=== PATIENT | female | born 1970 | race African-American/Black ===

== ENCOUNTER 2016-07-12 08:33 | Emergency (ER) | payer MEDICAID ==
[~2016-07-12] VITALS: Ht 175.3 cm; Wt 80.7 kg
[~2016-07-12 08:33] MED LIST: ACYC200C PO; CEPH-37 PO; CYCL10TA3 PO; FLUC150T38 PO; FLUO0.05; FLUT110A IN; TRAM50TA2 PO; VENTOLIN
[2016-07-12 09:00] VITALS: BP 134/88
[2016-07-12] MEDS ORDERED: KETOROLAC TROMETH 60MG/2ML VIAL IM ONE (09:30)
[2016-07-12] MEDS ORDERED: ONDANSETRON HCL 4 MG/2 ML VIAL IM ONE (09:30)
[2016-07-12 09:37] LABS: Basophils # (auto) 0 uL; Basophils % (auto) 0.4 % (0.0-2.0); Eosinophils # (auto) 0.1 uL; Hematocrit 38.2 % (36.0-46.0); Hemoglobin 12.9 g/dL (12.2-16.2); Lymphocytes # (auto) 1.5 uL; Lymphocytes % (auto) 25.8 % (10.0-50.0); Mean Corpuscular Hemoglobin 28.4 pg (28.0-32.0); Mean Corpuscular Hgb Conc. 33.8 g/dL (32.0-36.0); Mean Corpuscular Volume 83.9 fL (80.0-100.0); Mean Platelet Volume 7.2 fL (7.4-10.4); Monocytes # (auto) 0.3 uL; Monocytes % (auto) 4.3 % (0.0-12.0); Neutrophils # (auto) 4.1 uL; Neutrophils % (auto) 68.5 % (37.0-80.0); Platelet Count (auto) 341 10^3/uL (140-450); Red Cell Distribution Width 13.8 % (11.6-16.0)
[2016-07-12 10:00] LABS: Albumin 3.7 g/dL (3.4-5.0); BUN/Creatinine Ratio 8.9; Bilirubin, Total 0.6 mg/dL (0.2-1.0); Calcium 9.1 mg/dL (8.5-10.1); Total Protein 8.1 g/dL (6.4-8.2)
[2016-07-12] MEDS ORDERED: IPRATROPIUM BROM 0.5 MG/2.5ML INH SOL NEB ONE (10:00)
[2016-07-12] MEDS ORDERED: ALBUTEROL SULF 2.5 MG/0.5ML(0.5%) NEB SOLN NEB ONE (10:00)
[2016-07-12 10:51] LABS: INR 1.07 (0.9-1.15); Partial Thromboplastin Time 25.9 sec (22.64-33.71)
== END 2016-07-12 11:48 | disposition home or self-care (01) ==
LOC: ER 08:33
DX: N92.0 Excessive and frequent menstruation with regular cycle (principal); J45.909 Unspecified asthma, uncomplicated; D21.9 Benign neoplasm of connective and other soft tissue, unspecified; Z79.899 Other long term (current) drug therapy
CPT/HCPCS: 36415; 76856; 80053; 81002; 84702; 85025; 85610; 85730; 94640; 96372; 99285; J1885; J2405

== ENCOUNTER 2016-09-13 18:40 | Emergency (ER) | payer MEDICAID ==
[2016-09-13] MEDS ORDERED: IPRATROPIUM BROM 0.5 MG/2.5ML INH SOL NEB ONE (21:30)
[2016-09-13] MEDS ORDERED: ALBUTEROL SULF 2.5 MG/0.5ML(0.5%) NEB SOLN NEB ONE (21:30)
[2016-09-13 22:10] LABS: Basophils # (auto) 0 uL; Basophils % (auto) 0.5 % (0.0-2.0); Eosinophils # (auto) 0.2 uL; Eosinophils % (auto) 3.8 % (0.0-7.0); Hematocrit 37.9 % (36.0-46.0); Hemoglobin 12.5 g/dL (12.2-16.2); Lymphocytes # (auto) 2.6 uL; Lymphocytes % (auto) 43.6 % (10.0-50.0); Mean Corpuscular Hemoglobin 27.6 pg (28.0-32.0); Mean Corpuscular Hgb Conc. 32.9 g/dL (32.0-36.0); Mean Corpuscular Volume 83.7 fL (80.0-100.0); Mean Platelet Volume 7.7 fL (7.4-10.4); Monocytes # (auto) 0.3 uL; Neutrophils # (auto) 2.9 uL; Neutrophils % (auto) 47.1 % (37.0-80.0); Platelet Count (auto) 321 10^3/uL (140-450); Red Cell Distribution Width 14.3 % (11.6-16.0); White Blood Cell 6.1 10^3/uL (4.4-10.8)
[2016-09-13 22:40] LABS: Albumin 3.6 g/dL (3.4-5.0); Alkaline Phosphatase 89 U/L (45-117); Anion Gap 9 (5-15); Aspartate Aminotransferase 18 U/L (15-37); BUN/Creatinine Ratio 17.9; Bilirubin, Total 0.2 mg/dL (0.2-1.0); Blood Urea Nitrogen 20 mg/dL (7-18); Calcium 8.8 mg/dL (8.5-10.1); Carbon Dioxide 24 mmol/L (21-32); Chloride 106 mmol/L (98-107); GFR African American 68 mL/min; GFR Non-African American 56 mL/min; Glucose 89 mg/dL (74-106); Potassium 4.1 mmol/L (3.5-5.1); Sodium 139 mmol/L (136-145); Total Protein 8.1 g/dL (6.4-8.2)
[2016-09-13 23:11] VITALS: BP 149/82
[2016-09-14] MEDS ORDERED: SODIUM CHLORIDE 0.9% 1,000 ML IV ONE
[2016-09-14] MEDS ORDERED: ALBUTEROL SULF 2.5 MG/0.5ML(0.5%) NEB SOLN NEB ONE
[2016-09-14] MEDS ORDERED: methylPREDNISolone SOD SUCC 125 MG/2 ML VL IV ONE
[2016-09-14] MEDS ORDERED: KETOROLAC TROMETH 30 MG/ML 1ML VIAL IV ONE
[2016-09-14] MEDS ORDERED: IPRATROPIUM BROM 0.5 MG/2.5ML INH SOL NEB ONE
== END 2016-09-14 03:36 | disposition home or self-care (01) ==
LOC: ER 18:45
DX: J45.901 Unspecified asthma with (acute) exacerbation (principal)
CPT/HCPCS: 36415; 71010; 80053; 84484; 85025; 93005; 94640; 94644; 94761; 96361; 96374; 96375; 99285; J1885; J2930

== ENCOUNTER 2016-09-17 07:19 | Emergency (ER) | payer MEDICAID ==
[~2016-09-17] VITALS: Ht 175.3 cm; Wt 81.6 kg
[2016-09-17 07:48] VITALS: BP 113/80
== END 2016-09-17 08:23 | disposition home or self-care (01) ==
LOC: ER 07:19
DX: B02.9 Zoster without complications (principal); J45.909 Unspecified asthma, uncomplicated

== ENCOUNTER 2017-06-14 13:29 | Observation (INO) | payer MEDICAID ==
[~2017-06-14] VITALS: Ht 175.3 cm; Wt 84.8 kg
[~2017-06-14 13:29] MED LIST changes: +ACYC1CAP23 PO; -ACYC200C PO
[2017-06-14 14:10] LABS: Basophils # (auto) 0 uL; Basophils % (auto) 0.5 % (0.0-2.0); Eosinophils # (auto) 0.1 uL; Eosinophils % (auto) 2.1 % (0.0-7.0); Hematocrit 36.2 % (36.0-46.0); Lymphocytes # (auto) 2.2 uL; Lymphocytes % (auto) 40.4 % (10.0-50.0); Mean Corpuscular Hemoglobin 28.2 pg (28.0-32.0); Mean Corpuscular Hgb Conc. 33.2 g/dL (32.0-36.0); Mean Corpuscular Volume 85.1 fL (80.0-100.0); Monocytes # (auto) 0.3 uL; Monocytes % (auto) 6.3 % (0.0-12.0); Neutrophils # (auto) 2.8 uL; Neutrophils % (auto) 50.7 % (37.0-80.0); Nucleated Red Blood Cells % 0.1 %; Platelet Count (auto) 303 10^3/uL (140-450); Red Blood Cells 4.25 10^6/uL (4.0-5.20); Red Cell Distribution Width 13.9 % (11.8-14.3); White Blood Cell 5.5 10^3/uL (4.4-10.8)
[2017-06-14 14:45] LABS: Albumin 3.5 g/dL (3.4-5.0); BUN/Creatinine Ratio 8.7; Bilirubin, Total 0.2 mg/dL (0.2-1.0); Calcium 8.2 mg/dL (8.5-10.1); Potassium 3.8 mmol/L (3.5-5.1); Total Protein 7.8 g/dL (6.4-8.2)
[2017-06-14 14:46] LABS: Urine Bacteria NONE SEEN /hpf (None Seen); Urine Blood 2+ /uL (Negative); Urine Mucus FEW (None Seen); Urine Specific Gravity 1.028 (1.001-1.035); Urine WBC 2 /hpf (0 - 5)
[2017-06-14] MEDS ORDERED: SODIUM CHLORIDE 0.9% 1,000 ML IVB ONE (17:17)
[2017-06-14] MEDS ORDERED: ONDANSETRON HCL 4 MG/2 ML VIAL IV ONE (17:30)
[2017-06-14] MEDS ORDERED: KETOROLAC TROMETH 30 MG/ML 1ML VIAL IV ONE (17:30)
[2017-06-14 21:39] VITALS: BP 114/70
== END 2017-06-14 21:40 | disposition home or self-care (01) | DRG 249 ==
LOC: ER 13:29 → OVERFLOW 17:19 → ER 21:40
PROVIDERS: ADMIT Family Medicine; ATTEND Family Medicine
DX: K52.9 Noninfective gastroenteritis and colitis, unspecified (principal); J45.909 Unspecified asthma, uncomplicated; R11.2 Nausea with vomiting, unspecified
CPT/HCPCS: 36415; 71045; 74176; 80053; 81001; 81025; 82150; 83690; 85025; 94761; 96361; 96374; 96375; 99285; G0378; J1885; J2405

== ENCOUNTER 2017-06-20 16:55 | Emergency (ER) | payer MEDICAID ==
[~2017-06-20] VITALS: Ht 175.3 cm; Wt 83.9 kg
[2017-06-20 17:41] VITALS: BP 136/89
== END 2017-06-20 18:30 | disposition left against medical advice (07) ==
LOC: ER 16:55
DX: R07.9 Chest pain, unspecified (principal); R51 Headache; Z53.21 Procedure and treatment not carried out due to patient leaving prior to being seen by health care provider
CPT/HCPCS: 93005

== ENCOUNTER 2017-06-29 10:14 | Emergency (ER) | payer MEDICAID ==
[~2017-06-29] VITALS: Ht 172.7 cm; Wt 83.9 kg
[2017-06-29 10:24] VITALS: BP 106/69
== END 2017-06-29 11:26 | disposition home or self-care (01) ==
LOC: ER 10:14
DX: B02.9 Zoster without complications (principal); J45.909 Unspecified asthma, uncomplicated; Z76.0 Encounter for issue of repeat prescription

== ENCOUNTER 2018-01-23 09:20 | Emergency (ER) | payer MEDICAID, OTHER ==
[~2018-01-23] VITALS: Ht 175.3 cm; Wt 81.6 kg
[2018-01-23 09:37] VITALS: BP 109/70
[2018-01-23 11:11] LABS: Basophils # (auto) 0 uL; Basophils % (auto) 0.4 % (0.0-2.0); Eosinophils # (auto) 0 uL; Eosinophils % (auto) 0.9 % (0.0-7.0); Hematocrit 37.8 % (36.0-46.0); Hemoglobin 12.5 g/dL (12.2-16.2); Lymphocytes # (auto) 2.1 uL; Lymphocytes % (auto) 40.5 % (10.0-50.0); Mean Corpuscular Hemoglobin 28.1 pg (28.0-32.0); Mean Corpuscular Volume 85.1 fL (80.0-100.0); Monocytes # (auto) 0.2 uL; Monocytes % (auto) 4.5 % (0.0-12.0); Neutrophils # (auto) 2.8 uL; Neutrophils % (auto) 53.7 % (37.0-80.0); Nucleated Red Blood Cells % 0.1 %; Platelet Count (auto) 329 10^3/uL (140-450); Red Blood Cells 4.44 10^6/uL (4.0-5.20); Red Cell Distribution Width 14.3 % (11.8-14.3); White Blood Cell 5.2 10^3/uL (4.4-10.8)
[2018-01-23 11:30] LABS: Albumin 3.6 g/dL (3.4-5.0); BUN/Creatinine Ratio 9.1; Bilirubin, Total 0.4 mg/dL (0.2-1.0); Calcium 8.4 mg/dL (8.5-10.1)
[2018-01-23 11:37] LABS: Urine WBC None Seen /hpf (0 - 5)
[2018-01-23 12:06] LABS: Urine Bacteria NONE SEEN /hpf (None Seen); Urine Blood Negative /uL (Negative); Urine Mucus FEW (None Seen)
== END 2018-01-23 13:22 | disposition home or self-care (01) ==
LOC: ER 09:20
DX: O26.891 Other specified pregnancy related conditions, first trimester (principal); O21.9 Vomiting of pregnancy, unspecified; O99.511 Diseases of the respiratory system complicating pregnancy, first trimester; J45.909 Unspecified asthma, uncomplicated; Z3A.00 Weeks of gestation of pregnancy not specified
CPT/HCPCS: 36415; 80053; 81001; 81025; 84702; 85025

== ENCOUNTER 2018-04-16 15:53 | Emergency (ER) | payer MEDICAID ==
[~2018-04-16] VITALS: Ht 175.3 cm; Wt 82.1 kg
[2018-04-16 16:18] VITALS: BP 118/75
[2018-04-16] MEDS ORDERED: ALBUTEROL SULF 2.5 MG/0.5ML(0.5%) NEB SOLN NEB ONE (19:00)
[2018-04-16] MEDS ORDERED: LIDOCAINE 1% HCL (LOCAL ANESTH.) INJ 20ML MDV IJ ONE (19:00)
[2018-04-16] MEDS ORDERED: methylPREDNISolone SOD SUCC 125 MG/2 ML VL IM ONE (19:00)
[2018-04-16] MEDS ORDERED: IPRATROPIUM BROM 0.5 MG/2.5ML INH SOL NEB ONE (19:00)
== END 2018-04-16 20:39 | disposition home or self-care (01) ==
LOC: ER 15:53
DX: S90.212A Contusion of left great toe with damage to nail, initial encounter (principal); J45.901 Unspecified asthma with (acute) exacerbation; W19.XXXA Unspecified fall, initial encounter; Y93.89 Activity, other specified; Y92.89 Other specified places as the place of occurrence of the external cause; Y99.8 Other external cause status
CPT/HCPCS: 11730; 94640; 96372; 99283; J2001; J2930; J7611; J7644

== ENCOUNTER 2018-09-23 07:03 | Emergency (ER) | payer MEDICAID ==
[~2018-09-23] VITALS: Ht 175.3 cm; Wt 83.9 kg
[2018-09-23 07:14] VITALS: BP 131/86
[2018-09-23] MEDS ORDERED: ALBUTEROL SULF 2.5 MG/0.5ML(0.5%) NEB SOLN NEB STA (07:16)
[2018-09-23] MEDS ORDERED: IPRATROPIUM BROM 0.5 MG/2.5ML INH SOL NEB ONE (07:30)
[2018-09-23] MEDS ORDERED: methylPREDNISolone SOD SUCC 125 MG/2 ML VL IM ONE (07:45)
== END 2018-09-23 08:07 | disposition home or self-care (01) ==
LOC: ER 07:03
DX: J45.909 Unspecified asthma, uncomplicated (principal); J02.9 Acute pharyngitis, unspecified; H60.91 Unspecified otitis externa, right ear
CPT/HCPCS: 94640; 96372; 99283; J2930; J7611; J7644

== ENCOUNTER 2019-07-19 07:57 | Inpatient (IN) | payer SELFPAY ==
[~2019-07-19] VITALS: Ht 175.3 cm; Wt 78.2 kg
[2019-07-19] MEDS ORDERED: SODIUM CHLORIDE 0.9% 1,000 ML IVB ONE (08:37)
[2019-07-19] MEDS ORDERED: MORPHINE SULFATE 4 MG/ML SYR/VIAL IV ONE (08:45)
[2019-07-19] MEDS ORDERED: ONDANSETRON HCL 4 MG/2 ML VIAL IV ONE ×2 (08:45→13:15)
[2019-07-19 09:14] LABS: Urine Bacteria NONE SEEN /hpf (None Seen); Urine Blood 2+ /uL (Negative); Urine Specific Gravity 1.022 (1.001-1.035); Urine WBC 3 /hpf (0 - 5)
[2019-07-19 09:30] LABS: Basophils # (auto) 0 10 ^3/uL (0-0.2); Basophils % (auto) 0.5 % (0.0-2.0); Eosinophils # (auto) 0.1 10 ^3/uL (0-0.8); Eosinophils % (auto) 2.9 % (0.0-7.0); Hematocrit 38.9 % (36.0-46.0); Hemoglobin 12.8 g/dL (12.2-16.2); Lymphocytes # (auto) 1.6 10 ^3/uL (0.4-5.4); Lymphocytes % (auto) 37.1 % (10.0-50.0); Mean Corpuscular Hemoglobin 28.3 pg (28.0-32.0); Mean Corpuscular Hgb Conc. 32.8 g/dL (32.0-36.0); Mean Corpuscular Volume 86.4 fL (80.0-100.0); Monocytes # (auto) 0.2 10 ^3/uL (0-1.3); Monocytes % (auto) 4.9 % (0.0-12.0); Neutrophils # (auto) 2.3 10 ^3/uL (1.6-8.6); Neutrophils % (auto) 54.6 % (37.0-80.0); Platelet Count (auto) 276 10^3/uL (140-450); Red Cell Distribution Width 13.9 % (11.8-14.3); White Blood Cell 4.3 10^3/uL (4.4-10.8)
[2019-07-19 09:48] LABS: Albumin 3.3 g/dL (3.4-5.0); Calcium 8.6 mg/dL (8.5-10.1)
[2019-07-19 09:52] LABS: BUN/Creatinine Ratio 11.7; Bilirubin, Total 0.5 mg/dL (0.2-1.0); Total Protein 7.4 g/dL (6.4-8.2)
[2019-07-19] MEDS ORDERED: HYDROmorphone HCL 2 MG/ML VL IV ONE (13:15)
[2019-07-19 15:00] VITALS: BP 120/72
[2019-07-19] MEDS ORDERED: NITROGLYCERIN 0.4 MG SL TAB SL PRN (15:00)
[2019-07-19] MEDS ORDERED: traMADol HCL 50 MG TAB PO PRN (15:00)
[2019-07-19] MEDS ORDERED: ALBUTEROL SULF 2.5 MG/0.5ML(0.5%) NEB SOLN NEB PRN (15:00)
[2019-07-19] MEDS ORDERED: TEMAZEPAM 15 MG CAP PO PRN (15:00)
[2019-07-19] MEDS ORDERED: cefTRIAXone 1GM/50ML D5W 50 ML IV ONE (15:00)
[2019-07-19] MEDS ORDERED: MORPHINE SULF INJ 2 MG/ML SYRINGE 1ML IV PRN (15:00)
[2019-07-19] MEDS ORDERED: ACETAMINOPHEN 500 MG TAB PO PRN (15:00)
[2019-07-19] MEDS ORDERED: KETOROLAC TROMETH 15 mg/ml 1ML VL IV PRN (15:00)
[2019-07-19 15:10] LABS: CRP High Sensitivity 0.31 mg/dL (< 0.3)
[2019-07-19] MEDS: SODIUM CHLORIDE 0.9% 1,000 ML IV SCH (16:14)
--- NOTE | 2019-07-19 17:42 | NUR ---
Telemetry admit from ER [facility] admitted to Telemetry unit after SBAR received. Patient oriented to ARTIE KANG RN primary RN, [facility] unit, 223 room, B-bed, and unit policies regarding patient care and visiting hours. Patient now on continuous telemetry monitoring, tele box # [[id number]] and telemetry reading on arrival to unit is []. Patient placed on bedside oxygen, weighed by bedscale and encouraged to call if they need something. All questions and concerns addressed, patient verbalized understanding. Note: []
[2019-07-19 17:50] VITALS: BP 120/75
[2019-07-19] MEDS: ALBUTEROL SULF 2.5 MG/0.5ML(0.5%) NEB SOLN NEB SCH (19:59)
[2019-07-19 20:00] VITALS: BP 113/73
--- NOTE | 2019-07-19 20:00 | NUR ---
Opening Shift Note Assumed care of patient, awake and alert. Patient complains of headache, denies nausea and vomiting. Medicated with Tylenol 500 mg Instructed on POC and to call for assist PRN, will continue to monitor for changes Q1hr and PRN.
[2019-07-19] MEDS: FAMOTIDINE 20 MG TAB PO SCH (21:47)
[2019-07-19] MEDS: metroNIDAZOLE 500MG/100ML 100 ML IV SCH (21:47)
[2019-07-19 21:54] VITALS: BP 113/73
--- NOTE | 2019-07-19 22:02 | NUR ---
Patient noted moaning and complaining of severe abdominal pain. Dr. Acevedo notified of patient's pain level. New order received for Dilaudid 0.5 mg IVP.
[2019-07-19] MEDS: HYDROmorphone HCL 2 MG/ML VL IV PRN (23:47)
[2019-07-20] MEDS: ALBUTEROL SULF 2.5 MG/0.5ML(0.5%) NEB SOLN NEB SCH ×4 (00:15→12:00)
[2019-07-20] MEDS: SODIUM CHLORIDE 0.9% 1,000 ML IV SCH ×2 (00:49→10:49)
[2019-07-20] MEDS: HYDROmorphone HCL 2 MG/ML VL IV PRN ×2 (03:37→09:21)
[2019-07-20] MEDS: PROMETHAZINE HCL 25 MG/ML 1ML IV PRN ×2 (05:11→09:22)
--- NOTE | 2019-07-20 05:11 | NUR ---
Patient complains of abdominal pain. Medicated with Tramadol and Phenergan.
[2019-07-20] MEDS ORDERED: SODIUM CHLORIDE 0.9 % NEB SOLN 3ML NEB ONE ×2 (05:15→09:36)
[2019-07-20 05:30] VITALS: BP 112/68
[2019-07-20] MEDS: metroNIDAZOLE 500MG/100ML 100 ML IV SCH (05:43)
--- NOTE | 2019-07-20 07:00 | NUR ---
Patient resting comfortably. Report given to AM shift RN.
[2019-07-20 07:04] LABS: Basophils # (auto) 0 10 ^3/uL (0-0.2); Basophils % (auto) 0.4 % (0.0-2.0); Eosinophils # (auto) 0.1 10 ^3/uL (0-0.8); Eosinophils % (auto) 2.2 % (0.0-7.0); Hematocrit 34.1 % (36.0-46.0); Hemoglobin 11.3 g/dL (12.2-16.2); Lymphocytes # (auto) 1.8 10 ^3/uL (0.4-5.4); Lymphocytes % (auto) 49.3 % (10.0-50.0); Mean Corpuscular Hemoglobin 28.7 pg (28.0-32.0); Mean Corpuscular Hgb Conc. 33.2 g/dL (32.0-36.0); Mean Corpuscular Volume 86.5 fL (80.0-100.0); Monocytes # (auto) 0.2 10 ^3/uL (0-1.3); Monocytes % (auto) 5.5 % (0.0-12.0); Neutrophils # (auto) 1.6 10 ^3/uL (1.6-8.6); Neutrophils % (auto) 42.6 % (37.0-80.0); Platelet Count (auto) 259 10^3/uL (140-450); Red Blood Cells 3.94 10^6/uL (4.0-5.20); Red Cell Distribution Width 14.2 % (11.8-14.3); White Blood Cell 3.7 10^3/uL (4.4-10.8)
[2019-07-20 07:21] LABS: Albumin 2.9 g/dL (3.4-5.0); Calcium 7.8 mg/dL (8.5-10.1); Potassium 4.1 mmol/L (3.5-5.1)
[2019-07-20 07:24] LABS: BUN/Creatinine Ratio 19.5; Bilirubin, Total 0.3 mg/dL (0.2-1.0); Total Protein 6.4 g/dL (6.4-8.2)
[2019-07-20 09:00] VITALS: BP 129/74
[2019-07-20] MEDS ORDERED: cefTRIAXone 1GM/50ML D5W 50 ML IV SCH (09:00)
[2019-07-20] MEDS: FAMOTIDINE 20 MG TAB PO SCH (09:03)
[2019-07-20 13:00] VITALS: BP 127/75
--- NOTE | 2019-07-20 14:30 | NUR ---
Discharge instructions given as ordered. Encourage to follow up with PMD as instructed. All questions and concerns addressed. Patient verbalized understanding. Medication reconciliation form completed and copy given to patient. IV removed with catheter intact, pressure dressing applied. Telemetry unit returned to ICU. Patient declined to transfer to vehicle via wheelchair, patient left with all personal belongings. No distress noted at time of departure.
== END 2019-07-20 14:30 | disposition home or self-care (01) | DRG 392 ==
LOC: ER 07:57 → TELE 07:58 → TELE-CENTR 17:45
PROVIDERS: ADMIT Internal Medicine; ATTEND Internal Medicine
DX: R10.2 Pelvic and perineal pain (principal); F17.210 Nicotine dependence, cigarettes, uncomplicated; J45.909 Unspecified asthma, uncomplicated; Z80.0 Family history of malignant neoplasm of digestive organs; Z82.49 Family history of ischemic heart disease and other diseases of the circulatory system; R19.7 Diarrhea, unspecified
CPT/HCPCS: 36415; 74176; 76830; 76856; 80053; 81001; 81025; 82150; 83690; 83735; 84443; 85025; 85652; 86141; 94640; 96361; 96365; 96375; 96376; G0378; J0696; J2405; J3490

== ENCOUNTER 2019-07-26 08:50 | Emergency (ER) | payer SELFPAY ==
[~2019-07-26] VITALS: Ht 175.3 cm; Wt 76.2 kg
[2019-07-26 09:02] VITALS: BP 126/79
[2019-07-26 09:39] LABS: Urine Bacteria NONE SEEN /hpf (None Seen); Urine Blood Negative /uL (Negative); Urine Mucus FEW (None Seen); Urine Specific Gravity 1.033 (1.001-1.035); Urine WBC 3 /hpf (0 - 5)
== END 2019-07-26 10:04 | disposition home or self-care (01) ==
LOC: ER 08:50
DX: N39.0 Urinary tract infection, site not specified (principal); N76.0 Acute vaginitis; F17.210 Nicotine dependence, cigarettes, uncomplicated
CPT/HCPCS: 81001; 87210

== ENCOUNTER 2020-02-25 10:11 | Emergency (ER) | payer MEDICAID ==
[~2020-02-25] VITALS: Ht 172.7 cm; Wt 72.6 kg
[2020-02-25] MEDS ORDERED: IBUPROFEN 800 MG TAB PO ONE (12:00)
[2020-02-25 12:21] VITALS: BP 113/78
== END 2020-02-25 12:27 | disposition home or self-care (01) ==
LOC: ER 10:11
DX: M25.551 Pain in right hip (principal); F17.210 Nicotine dependence, cigarettes, uncomplicated; Z79.899 Other long term (current) drug therapy
CPT/HCPCS: 73502

== ENCOUNTER 2020-04-19 07:45 | Emergency (ER) | payer SELFPAY ==
[~2020-04-19] VITALS: Ht 172.7 cm; Wt 68.0 kg
[2020-04-19 08:01] VITALS: BP 122/81
[2020-04-19] MEDS ORDERED: IPRATROPIUM BROM 0.5 MG/2.5ML INH SOL NEB ONE (08:30)
[2020-04-19] MEDS ORDERED: methylPREDNISolone SOD SUCC 125 MG/2 ML VL IM ONE (08:30)
[2020-04-19] MEDS ORDERED: ALBUTEROL SULF 2.5 MG/0.5ML(0.5%) NEB SOLN NEB ONE (08:30)
== END 2020-04-19 09:05 | disposition home or self-care (01) ==
LOC: ER 07:45
DX: J45.21 Mild intermittent asthma with (acute) exacerbation (principal); F17.210 Nicotine dependence, cigarettes, uncomplicated
CPT/HCPCS: 94640; 96372; 99283; J2930; J7644

== ENCOUNTER 2020-06-03 14:08 | Emergency (ER) | payer MEDICAID, OTHER ==
[~2020-06-03] VITALS: Ht 167.6 cm; Wt 61.2 kg
[2020-06-03 15:17] LABS: Basophils # (auto) 0 10 ^3/uL (0-0.2); Basophils % (auto) 0.5 % (0.0-2.0); Eosinophils # (auto) 0.1 10 ^3/uL (0-0.8); Eosinophils % (auto) 1.3 % (0.0-7.0); Hematocrit 38.9 % (36.0-46.0); Hemoglobin 13.1 g/dL (12.2-16.2); Lymphocytes # (auto) 1.7 10 ^3/uL (0.4-5.4); Lymphocytes % (auto) 36.8 % (10.0-50.0); Mean Corpuscular Hemoglobin 29.4 pg (28.0-32.0); Mean Corpuscular Hgb Conc. 33.7 g/dL (32.0-36.0); Mean Corpuscular Volume 87.4 fL (80.0-100.0); Monocytes # (auto) 0.2 10 ^3/uL (0-1.3); Monocytes % (auto) 5.1 % (0.0-12.0); Neutrophils # (auto) 2.7 10 ^3/uL (1.6-8.6); Neutrophils % (auto) 56.3 % (37.0-80.0); Red Blood Cells 4.45 10^6/uL (4.0-5.20); Red Cell Distribution Width 14.3 % (11.8-14.3); White Blood Cell 4.8 10^3/uL (4.4-10.8)
[2020-06-03 15:24] LABS: Urine Bacteria NONE SEEN /hpf (None Seen); Urine Blood Negative /uL (Negative); Urine Hyaline Cast FEW /lpf (0 - 2); Urine Mucus FEW (None Seen); Urine Specific Gravity 1.025 (1.001-1.035); Urine WBC 2 /hpf (0 - 5)
[2020-06-03 15:28] LABS: Amphetamine Screen, Urine NEGATIVE (NEGATIVE); Barbiturate Scree,Urine NEGATIVE (NEGATIVE); Benzodiazephine Screen, Urine NEGATIVE (NEGATIVE); Cannabinoid Screen, Urine POSITIVE (NEGATIVE); Cocaine Screen, Urine NEGATIVE (NEGATIVE); Opiate Scree,Urine NEGATIVE (NEGATIVE)
[2020-06-03 15:30] LABS: Chloride 107 mmol/L (98-107); Potassium 3.8 mmol/L (3.5-5.1); Sodium 139 mmol/L (136-145)
[2020-06-03 15:35] LABS: Phencyclidine Screen, Urine NEGATIVE (NEGATIVE)
[2020-06-03 15:39] LABS: Alanine Aminotransferase 24 U/L (13-56); Albumin 3.6 g/dL (3.4-5.0); Alkaline Phosphatase 89 U/L (45-117); Anion Gap 3 (5-15); Aspartate Aminotransferase 14 U/L (15-37); BUN/Creatinine Ratio 15.1; Bilirubin, Total 0.3 mg/dL (0.2-1.0); Blood Urea Nitrogen 14 mg/dL (7-18); Calcium 8.4 mg/dL (8.5-10.1); Carbon Dioxide 29 mmol/L (21-32); GFR African American 82 mL/min; GFR Non-African American 68 mL/min; Glucose 61 mg/dL (74-106); Magnesium 2.6 mg/dL (1.6-2.6); Total Protein 7.9 g/dL (6.4-8.2)
[2020-06-03] MEDS ORDERED: SODIUM CHLORIDE 0.9% 1,000 ML IV ONE (16:00)
[2020-06-03 18:47] VITALS: BP 102/65
== END 2020-06-03 18:48 | disposition home or self-care (01) ==
LOC: EDUNIT# 14:08 → ER 14:08 → EDBD 14:08 → ER 18:48
DX: R55 Syncope and collapse (principal); F17.210 Nicotine dependence, cigarettes, uncomplicated; Z79.899 Other long term (current) drug therapy
CPT/HCPCS: 36415; 70450; 80053; 80307; 81001; 81025; 83735; 84484; 85025; 96360; 99285; J7030; 93005

== ENCOUNTER 2020-07-20 15:46 | Emergency (ER) | payer MEDICAID, OTHER ==
[~2020-07-20] VITALS: Ht 175.3 cm; Wt 79.4 kg
[2020-07-20] MEDS ORDERED: ONDANSETRON HCL 4 MG/2 ML VIAL IV ONE (16:00)
[2020-07-20] MEDS ORDERED: KETOROLAC TROMETH 30 MG/ML 1ML VIAL IV ONE (16:00)
[2020-07-20 16:49] LABS: Basophils # (auto) 0 10 ^3/uL (0-0.2); Basophils % (auto) 0.7 % (0.0-2.0); Eosinophils # (auto) 0.1 10 ^3/uL (0-0.8); Eosinophils % (auto) 2.1 % (0.0-7.0); Hematocrit 36.8 % (36.0-46.0); Hemoglobin 12.3 g/dL (12.2-16.2); Lymphocytes # (auto) 2.2 10 ^3/uL (0.4-5.4); Lymphocytes % (auto) 38.5 % (10.0-50.0); Mean Corpuscular Hemoglobin 28.9 pg (28.0-32.0); Mean Corpuscular Hgb Conc. 33.4 g/dL (32.0-36.0); Mean Corpuscular Volume 86.3 fL (80.0-100.0); Monocytes # (auto) 0.3 10 ^3/uL (0-1.3); Monocytes % (auto) 5.5 % (0.0-12.0); Neutrophils % (auto) 53.2 % (37.0-80.0); Nucleated Red Blood Cells % 0.2 %; Platelet Count (auto) 299 10^3/uL (140-450); Red Blood Cells 4.27 10^6/uL (4.0-5.20); White Blood Cell 5.6 10^3/uL (4.4-10.8)
[2020-07-20 17:06] LABS: Albumin 3.7 g/dL (3.4-5.0); Anion Gap 5 (5-15); BUN/Creatinine Ratio 12.2; Blood Urea Nitrogen 11 mg/dL (7-18); Calcium 8.1 mg/dL (8.5-10.1); Carbon Dioxide 29 mmol/L (21-32); Chloride 107 mmol/L (98-107); GFR African American 86 mL/min; GFR Non-African American 71 mL/min; Glucose 74 mg/dL (74-106); Magnesium 2.2 mg/dL (1.6-2.6); Potassium 3.7 mmol/L (3.5-5.1); Sodium 141 mmol/L (136-145)
[2020-07-20 17:11] LABS: Alanine Aminotransferase 21 U/L (13-56); Alkaline Phosphatase 88 U/L (45-117); Aspartate Aminotransferase 15 U/L (15-37); Bilirubin, Total 0.2 mg/dL (0.2-1.0); Total Protein 7.6 g/dL (6.4-8.2)
[2020-07-20 17:38] VITALS: BP 114/77
== END 2020-07-20 17:57 | disposition home or self-care (01) ==
LOC: ER 15:46
DX: R07.89 Other chest pain (principal); F17.210 Nicotine dependence, cigarettes, uncomplicated; Z79.899 Other long term (current) drug therapy
CPT/HCPCS: 36415; 71046; 80053; 83735; 84484; 85025; 85379; 93005; 96374; 96375; 99285; J1885; J2405

== ENCOUNTER 2020-07-25 09:55 | Emergency (ER) | payer SELFPAY ==
[~2020-07-25] VITALS: Ht 154.9 cm; Wt 72.6 kg
[2020-07-25] MEDS ORDERED: SODIUM CHLORIDE 0.9% 500 ML IV ONE (10:30)
[2020-07-25] MEDS ORDERED: SODIUM CHLORIDE 0.9% 1,000 ML IV ONE (10:30)
[2020-07-25] MEDS ORDERED: ONDANSETRON HCL 4 MG/2 ML VIAL IV ONE (10:30)
[2020-07-25 10:52] LABS: Basophils # (auto) 0 10 ^3/uL (0-0.2); Basophils % (auto) 0.4 % (0.0-2.0); Eosinophils # (auto) 0.1 10 ^3/uL (0-0.8); Eosinophils % (auto) 1.5 % (0.0-7.0); Hematocrit 36.7 % (36.0-46.0); Hemoglobin 12.3 g/dL (12.2-16.2); Lymphocytes # (auto) 1.3 10 ^3/uL (0.4-5.4); Lymphocytes % (auto) 35.9 % (10.0-50.0); Mean Corpuscular Hemoglobin 28.7 pg (28.0-32.0); Mean Corpuscular Hgb Conc. 33.5 g/dL (32.0-36.0); Mean Corpuscular Volume 85.9 fL (80.0-100.0); Monocytes # (auto) 0.2 10 ^3/uL (0-1.3); Monocytes % (auto) 4.6 % (0.0-12.0); Neutrophils # (auto) 2.2 10 ^3/uL (1.6-8.6); Neutrophils % (auto) 57.6 % (37.0-80.0); Nucleated Red Blood Cells % 0.1 %; Platelet Count (auto) 257 10^3/uL (140-450); Red Blood Cells 4.27 10^6/uL (4.0-5.20); Red Cell Distribution Width 14.4 % (11.8-14.3); White Blood Cell 3.8 10^3/uL (4.4-10.8)
[2020-07-25 10:53] LABS: Albumin 3.5 g/dL (3.4-5.0); Calcium 8.7 mg/dL (8.5-10.1); Potassium 4.3 mmol/L (3.5-5.1)
[2020-07-25 11:00] LABS: Bilirubin, Total 0.2 mg/dL (0.2-1.0); Total Protein 7.3 g/dL (6.4-8.2)
[2020-07-25 11:23] LABS: BUN/Creatinine Ratio 14.1
[2020-07-25] MEDS ORDERED: MORPHINE SULF INJ 2 MG/ML SYRINGE 1ML IV ONE (12:00)
[2020-07-25] MEDS ORDERED: PROCHLORPERAZINE EDISYLATE 5 MG/ML 2ML VIAL IV ONE (12:00)
[2020-07-25 12:28] LABS: Urine WBC None Seen /hpf (0 - 5)
[2020-07-25 13:24] LABS: Urine Bacteria NONE SEEN /hpf (None Seen); Urine Blood Negative /uL (Negative); Urine Mucus FEW (None Seen); Urine Specific Gravity 1.021 (1.001-1.035)
[2020-07-25 13:26] VITALS: BP 131/92
== END 2020-07-25 18:20 | disposition home or self-care (01) ==
LOC: ER 09:55 → EDBD 09:55 → ER 18:20
DX: G43.909 Migraine, unspecified, not intractable, without status migrainosus (principal); Z20.822 Contact with and (suspected) exposure to COVID-19; Z79.899 Other long term (current) drug therapy; Z87.891 Personal history of nicotine dependence
CPT/HCPCS: 36415; 70450; 71046; 80053; 81001; 83735; 84702; 85025; 87426; 93005; 96361; 96374; 96375; 99285; J0780; J2270; J2405

== ENCOUNTER 2021-03-15 09:15 | Emergency (ER) | payer MEDICAID, OTHER ==
[~2021-03-15] VITALS: Ht 175.3 cm; Wt 77.1 kg
[2021-03-15 10:15] VITALS: BP 129/92
[2021-03-15] MEDS ORDERED: KETOROLAC TROMETH 60MG/2ML VIAL IM ONE (10:30)
== END 2021-03-15 10:48 | disposition home or self-care (01) ==
LOC: ER 09:15
DX: K04.7 Periapical abscess without sinus (principal); J45.909 Unspecified asthma, uncomplicated; Z79.899 Other long term (current) drug therapy
CPT/HCPCS: 96372; 99283; J1885

== ENCOUNTER 2021-09-10 12:06 | Emergency (ER) | payer OTHER ==
[~2021-09-10] VITALS: Ht 172.7 cm; Wt 78.9 kg
[2021-09-10] MEDS ORDERED: MORPHINE SULFATE 4 MG/ML SYR/VIAL IV ONE (12:45)
[2021-09-10] MEDS ORDERED: SODIUM CHLORIDE 0.9% 1,000 ML IVB ONE (12:45)
[2021-09-10] MEDS ORDERED: ONDANSETRON HCL 4 MG/2 ML VIAL IV ONE (12:45)
[2021-09-10] MEDS ORDERED: IOHEXOL 300 MG/ML 100ML BOTTLE IJ ONE ×2 (12:51→14:03)
[2021-09-10 13:39] LABS: Basophils # (auto) 0 10 ^3/uL (0-0.2); Basophils % (auto) 0.6 % (0.0-2.0); Eosinophils # (auto) 0 10 ^3/uL (0-0.8); Eosinophils % (auto) 0.7 % (0.0-7.0); Hematocrit 38.4 % (36.0-46.0); Hemoglobin 12.8 g/dL (12.2-16.2); Lymphocytes # (auto) 1.6 10 ^3/uL (0.4-5.4); Lymphocytes % (auto) 33.6 % (10.0-50.0); Mean Corpuscular Hgb Conc. 33.3 g/dL (32.0-36.0); Mean Corpuscular Volume 86.9 fL (80.0-100.0); Monocytes # (auto) 0.3 10 ^3/uL (0-1.3); Monocytes % (auto) 6.1 % (0.0-12.0); Neutrophils # (auto) 2.8 10 ^3/uL (1.6-8.6); Nucleated Red Blood Cells % 0.1 %; Red Blood Cells 4.42 10^6/uL (4.0-5.20); White Blood Cell 4.7 10^3/uL (4.4-10.8)
[2021-09-10 14:04] LABS: Albumin 3.8 g/dL (3.4-5.0); Calcium 9.4 mg/dL (8.5-10.1); Potassium 4.2 mmol/L (3.5-5.1)
[2021-09-10 14:06] LABS: BUN/Creatinine Ratio 13.7
[2021-09-10 14:09] LABS: Bilirubin, Total 0.4 mg/dL (0.2-1.0); Total Protein 8.1 g/dL (6.4-8.2)
[2021-09-10 15:30] VITALS: BP 145/70
[2021-09-10 16:16] LABS: Urine Bacteria NONE SEEN /hpf (None Seen); Urine Blood Negative /uL (Negative); Urine Specific Gravity > 1.050 (1.001-1.035); Urine WBC <1 /hpf (0 - 5)
[2021-09-10] MEDS ORDERED: traMADol HCL 50 MG TAB PO ONE (16:30)
== END 2021-09-10 16:59 | disposition home or self-care (01) ==
LOC: EDUNIT# 12:06 → EDBD 12:06 → ER 12:06
DX: R10.30 Lower abdominal pain, unspecified (principal); R55 Syncope and collapse; J45.909 Unspecified asthma, uncomplicated; V43.52XA Car driver injured in collision with other type car in traffic accident, initial encounter; Y93.89 Activity, other specified; Y92.410 Unspecified street and highway as the place of occurrence of the external cause; Y99.8 Other external cause status
CPT/HCPCS: 36415; 74177; 80053; 81001; 82150; 83690; 85025; 93005; 96361; 96374; 96375; 99285; J2270; J2405; J7030; Q9967

== ENCOUNTER 2021-12-23 07:17 | Emergency (ER) | payer MEDICAID, OTHER ==
[~2021-12-23] VITALS: Ht 172.7 cm; Wt 77.2 kg
[2021-12-23 07:37] VITALS: BP 134/92
[2021-12-23] MEDS ORDERED: METH4PAK PO (08:39)
[2021-12-23] MEDS ORDERED: ACET-1080 PO (08:39)
[2021-12-23] MEDS ORDERED: AZIT250T8 PO (08:39)
[2021-12-23] MEDS ORDERED: cefTRIAXone SOD 1,000 MG VL IM ONE (08:45)
[2021-12-23] MEDS ORDERED: DexAMETHasone SOD PHOS 10MG/1ML VIAL INJ IM ONE (08:45)
[2021-12-23] MEDS ORDERED: ACETAMINOPHEN 500 MG TAB PO ONE (08:45)
== END 2021-12-23 08:49 | disposition home or self-care (01) ==
LOC: ER 07:17
DX: U07.1 COVID-19 (principal); M79.10 Myalgia, unspecified site; J45.909 Unspecified asthma, uncomplicated; Z87.891 Personal history of nicotine dependence
CPT/HCPCS: 71045; 96372; 99284; J0696; J1100

== ENCOUNTER 2022-04-14 09:38 | Emergency (ER) | payer MEDICAID ==
[~2022-04-14] VITALS: Ht 177.8 cm; Wt 81.8 kg
[~2022-04-14 09:38] MED LIST changes: +ACET-1080 PO; +AZIT250T8 PO; +METH4PAK PO
[2022-04-14 10:19] VITALS: BP 147/88
[2022-04-14 10:29] LABS: Basophils # (auto) 0 10 ^3/uL (0-0.2); Basophils % (auto) 0.6 % (0.0-2.0); Eosinophils # (auto) 0.1 10 ^3/uL (0-0.8); Eosinophils % (auto) 1.4 % (0.0-7.0); Hematocrit 38.6 % (36.0-46.0); Hemoglobin 12.6 g/dL (12.2-16.2); Lymphocytes # (auto) 2.3 10 ^3/uL (0.4-5.4); Lymphocytes % (auto) 48.3 % (10.0-50.0); Mean Corpuscular Hgb Conc. 32.6 g/dL (32.0-36.0); Mean Corpuscular Volume 85.8 fL (80.0-100.0); Monocytes # (auto) 0.3 10 ^3/uL (0-1.3); Monocytes % (auto) 7.1 % (0.0-12.0); Neutrophils % (auto) 42.6 % (37.0-80.0); Nucleated Red Blood Cells % 0.1 %; Red Cell Distribution Width 14.6 % (11.8-14.3); White Blood Cell 4.7 10^3/uL (4.4-10.8)
[2022-04-14 10:40] LABS: Albumin 3.8 g/dL (3.4-5.0); Calcium 9.1 mg/dL (8.5-10.1); Potassium 4.2 mmol/L (3.5-5.1)
[2022-04-14 10:45] LABS: Bilirubin, Total 0.3 mg/dL (0.2-1.0); Total Protein 7.4 g/dL (6.4-8.2)
[2022-04-14 12:18] LABS: BUN/Creatinine Ratio 13.3
== END 2022-04-14 13:04 | disposition home or self-care (01) ==
LOC: ER 09:38
DX: R00.2 Palpitations (principal); F41.8 Other specified anxiety disorders; J45.909 Unspecified asthma, uncomplicated; F17.210 Nicotine dependence, cigarettes, uncomplicated; Z79.2 Long term (current) use of antibiotics; Z79.899 Other long term (current) drug therapy
CPT/HCPCS: 36415; 71045; 80053; 81025; 83880; 84484; 85025; 93005

== ENCOUNTER 2022-07-01 17:40 | Inpatient (IN) | payer MEDICAID ==
[~2022-07-01] VITALS: Ht 167.6 cm; Wt 87.0 kg
[2022-07-01] MEDS ORDERED: MORPHINE SULFATE 4 MG/ML SYR/VIAL IV ONE (19:00)
[2022-07-01 19:38] LABS: Basophils # (auto) 0.1 10 ^3/uL (0-0.2); Basophils % (auto) 1.4 % (0.0-2.0); Eosinophils # (auto) 0 10 ^3/uL (0-0.8); Eosinophils % (auto) 0.8 % (0.0-7.0); Hematocrit 37.5 % (36.0-46.0); Hemoglobin 12.4 g/dL (12.2-16.2); Lymphocytes # (auto) 1.2 10 ^3/uL (0.4-5.4); Lymphocytes % (auto) 20.4 % (10.0-50.0); Mean Corpuscular Hemoglobin 28.4 pg (28.0-32.0); Mean Corpuscular Hgb Conc. 33.1 g/dL (32.0-36.0); Mean Corpuscular Volume 85.8 fL (80.0-100.0); Monocytes # (auto) 0.3 10 ^3/uL (0-1.3); Monocytes % (auto) 4.6 % (0.0-12.0); Neutrophils # (auto) 4.2 10 ^3/uL (1.6-8.6); Neutrophils % (auto) 72.8 % (37.0-80.0); Red Blood Cells 4.37 10^6/uL (4.0-5.20); Red Cell Distribution Width 14.4 % (11.8-14.3); White Blood Cell 5.7 10^3/uL (4.4-10.8)
[2022-07-01 19:55] LABS: Albumin 3.7 g/dL (3.4-5.0); Calcium 8.8 mg/dL (8.5-10.1); Potassium 3.8 mmol/L (3.5-5.1)
[2022-07-01 19:58] LABS: BUN/Creatinine Ratio 16.1; Bilirubin, Total 0.2 mg/dL (0.2-1.0); Total Protein 7.6 g/dL (6.4-8.2)
[2022-07-01] MEDS ORDERED: ONDANSETRON HCL 4 MG/2 ML VIAL IV ONE (20:00)
[2022-07-01] MEDS ORDERED: ACETAMINOPHEN 325 MG TAB PO PRN (22:15)
[2022-07-01] MEDS ORDERED: DOCUSATE SOD 100 MG CAP PO PRN (22:15)
[2022-07-01] MEDS: SODIUM CHLORIDE 0.9% 1,000 ML IV SCH (22:15)
[2022-07-01] MEDS ORDERED: NITROGLYCERIN 0.4 MG SL TAB SL PRN (23:00)
[2022-07-01] MEDS ORDERED: MORPHINE SULFATE INJ 2 MG/ml SYRG IV PRN (23:00)
[2022-07-01] MEDS: MORPHINE SULFATE INJ 2 MG/ml SYRG IV PRN (23:07)
[2022-07-01 23:53] LABS: Urine Bacteria NONE SEEN /hpf (None Seen); Urine Blood Negative /uL (Negative); Urine Hyaline Cast FEW /lpf (0 - 2); Urine Mucus FEW (None Seen); Urine Specific Gravity 1.024 (1.001-1.035); Urine WBC 2 /hpf (0 - 5)
[2022-07-02] MEDS: MORPHINE SULFATE INJ 2 MG/ml SYRG IV PRN ×4 (04:24→21:49)
[2022-07-02] MEDS ORDERED: ALBUTEROL MEDNEB 2.5 mg/3ml NEB ONE ×2 (04:40→15:35)
[2022-07-02] MEDS: ALBUTEROL SULF 2.5 MG/0.5ML(0.5%) NEB SOLN NEB PRN ×2 (04:51→15:37)
[2022-07-02 05:19] LABS: Basophils # (auto) 0 10 ^3/uL (0-0.2); Basophils % (auto) 0.4 % (0.0-2.0); Eosinophils # (auto) 0.1 10 ^3/uL (0-0.8); Hematocrit 36.8 % (36.0-46.0); Hemoglobin 12.6 g/dL (12.2-16.2); Lymphocytes # (auto) 1.8 10 ^3/uL (0.4-5.4); Lymphocytes % (auto) 32.1 % (10.0-50.0); Mean Corpuscular Hemoglobin 29.3 pg (28.0-32.0); Mean Corpuscular Hgb Conc. 34.3 g/dL (32.0-36.0); Mean Corpuscular Volume 85.5 fL (80.0-100.0); Monocytes # (auto) 0.4 10 ^3/uL (0-1.3); Monocytes % (auto) 7.4 % (0.0-12.0); Neutrophils # (auto) 3.3 10 ^3/uL (1.6-8.6); Neutrophils % (auto) 59.1 % (37.0-80.0); Nucleated Red Blood Cells % 0.1 %; Red Blood Cells 4.31 10^6/uL (4.0-5.20); Red Cell Distribution Width 14.3 % (11.8-14.3); White Blood Cell 5.6 10^3/uL (4.4-10.8)
[2022-07-02 05:33] LABS: Albumin 3.5 g/dL (3.4-5.0); Calcium 8.5 mg/dL (8.5-10.1)
[2022-07-02 05:37] LABS: BUN/Creatinine Ratio 13.3; Bilirubin, Total 0.7 mg/dL (0.2-1.0); Total Protein 7.4 g/dL (6.4-8.2)
[2022-07-02] MEDS: HYDROcodone-ACET 5/325MG TAB PO PRN (05:38)
[2022-07-02 07:28] VITALS: BP 129/79
[2022-07-02] MEDS: ONDANSETRON HCL 4 MG/2 ML VIAL IV PRN ×3 (09:10→21:49)
[2022-07-02] MEDS: ENOXAPARIN SOD 40 MG/0.4 ML SYRINGE SC SCH (10:00)
[2022-07-02] MEDS: SODIUM CHLORIDE 0.9% 1,000 ML IV SCH (14:55)
[2022-07-02] MEDS: MECLIZINE HCL 25 MG TAB PO PRN ×2 (16:15→21:42)
[2022-07-02 21:56] LABS: Urine Amorphous Crystal FEW /hpf (None Seen); Urine Bacteria NONE SEEN /hpf (None Seen); Urine Blood Negative /uL (Negative); Urine WBC 115 /hpf (0 - 5); Urine WBC Clumps PRESENT /hpf (None Seen)
[2022-07-03] VITALS (11 sets, daily range): BP systolic 100–131; BP diastolic 62–90
[2022-07-03] MEDS: MECLIZINE HCL 25 MG TAB PO PRN ×4 (02:10→21:23)
[2022-07-03] MEDS: ONDANSETRON HCL 4 MG/2 ML VIAL IV PRN (02:11)
[2022-07-03] MEDS: MORPHINE SULFATE INJ 2 MG/ml SYRG IV PRN ×4 (02:11→21:23)
[2022-07-03] MEDS: SODIUM CHLORIDE 0.9% 1,000 ML IV SCH (07:35)
[2022-07-03] MEDS: ENOXAPARIN SOD 40 MG/0.4 ML SYRINGE SC SCH (10:13)
[2022-07-04] MEDS: HYDROcodone-ACET 5/325MG TAB PO PRN (02:58)
[2022-07-04] MEDS: MECLIZINE HCL 25 MG TAB PO PRN ×4 (03:13→21:28)
[2022-07-04] MEDS: SODIUM CHLORIDE 0.9% 1,000 ML IV SCH ×2 (03:59→17:24)
[2022-07-04 05:00] VITALS: BP 121/85
[2022-07-04] MEDS: MORPHINE SULFATE INJ 2 MG/ml SYRG IV PRN ×4 (05:41→21:30)
[2022-07-04 09:00] VITALS: BP 112/70
[2022-07-04] MEDS: ENOXAPARIN SOD 40 MG/0.4 ML SYRINGE SC SCH (11:05)
[2022-07-04 13:00] VITALS: BP 120/83
[2022-07-04 17:00] VITALS: BP 121/82
[2022-07-05 00:18] VITALS: BP 115/81
[2022-07-05] MEDS: MORPHINE SULFATE INJ 2 MG/ml SYRG IV PRN ×2 (02:56→17:41)
[2022-07-05] MEDS: MECLIZINE HCL 25 MG TAB PO PRN ×2 (02:56→17:40)
[2022-07-05 05:40] VITALS: BP 99/62
[2022-07-05 08:59] VITALS: BP 102/55
[2022-07-05] MEDS: ENOXAPARIN SOD 40 MG/0.4 ML SYRINGE SC SCH (09:21)
[2022-07-05] MEDS: SODIUM CHLORIDE 0.9% 1,000 ML IV SCH (09:35)
[2022-07-05] MEDS ORDERED: LORazepam 2MG/ML-1ML VIAL IV ONE (12:00)
[2022-07-05 13:00] VITALS: BP 132/83
[2022-07-05 16:40] VITALS: BP 115/81
[2022-07-05 22:00] VITALS: BP 112/77
[2022-07-06] VITALS (8 sets, daily range): BP systolic 106–119; BP diastolic 54–83
[2022-07-06] MEDS: MECLIZINE HCL 25 MG TAB PO PRN ×4 (00:50→21:40)
[2022-07-06] MEDS: MORPHINE SULFATE INJ 2 MG/ml SYRG IV PRN ×4 (00:51→21:40)
[2022-07-06] MEDS: SODIUM CHLORIDE 0.9% 1,000 ML IV SCH ×2 (05:54→19:15)
[2022-07-06] MEDS: ENOXAPARIN SOD 40 MG/0.4 ML SYRINGE SC SCH (09:10)
[2022-07-07] MEDS: MORPHINE SULFATE INJ 2 MG/ml SYRG IV PRN (04:13)
[2022-07-07] MEDS: MECLIZINE HCL 25 MG TAB PO PRN ×2 (04:13→09:02)
[2022-07-07 05:00] VITALS: BP_SYST 102; BP_SYST 116; BP_SYST 99; BP_DIAS 60; BP_DIAS 71; BP_DIAS 80
[2022-07-07 09:00] VITALS: BP_SYST 101; BP_SYST 109; BP_SYST 111; BP_DIAS 70; BP_DIAS 73
[2022-07-07] MEDS: ENOXAPARIN SOD 40 MG/0.4 ML SYRINGE SC SCH (09:02)
[2022-07-07] MEDS: HYDROcodone-ACET 5/325MG TAB PO PRN (09:03)
[2022-07-07] MEDS ORDERED: MECL12.514 PO (11:23)
[2022-07-07] MEDS: SODIUM CHLORIDE 0.9% 1,000 ML IV SCH (11:30)
[2022-07-07 12:26] VITALS: BP 116/83
== END 2022-07-07 13:05 | disposition home or self-care (01) | DRG 57 ==
LOC: EDBD 17:40 → ER 17:40 → OVERFLOW 22:57 → TELE-WESTW 07-02 23:25
PROVIDERS: ADMIT Nurse Practitioner Family; ATTEND Internal Medicine
DX: S06.0X1A Concussion with loss of consciousness of 30 minutes or less, initial encounter (principal); E66.9 Obesity, unspecified; S01.01XA Laceration without foreign body of scalp, initial encounter; J45.909 Unspecified asthma, uncomplicated; E78.5 Hyperlipidemia, unspecified; R55 Syncope and collapse; F17.210 Nicotine dependence, cigarettes, uncomplicated; M79.18 Myalgia, other site; S50.02XA Contusion of left elbow, initial encounter; S93.505A Unspecified sprain of left lesser toe(s), initial encounter; Z20.822 Contact with and (suspected) exposure to COVID-19; H81.10 Benign paroxysmal vertigo, unspecified ear; W18.39XA Other fall on same level, initial encounter; Z80.0 Family history of malignant neoplasm of digestive organs; Y93.89 Activity, other specified; Y92.89 Other specified places as the place of occurrence of the external cause; Y99.8 Other external cause status; Z83.3 Family history of diabetes mellitus; Z82.49 Family history of ischemic heart disease and other diseases of the circulatory system; Z68.31 Body mass index [BMI] 31.0-31.9, adult
CPT/HCPCS: 36415; 70450; 70551; 73080; 73200; 73610; 73630; 80053; 81001; 85025; 87426; 93005; 93306; 93886; 94640; 95819; 96361; 96374; 96375; G0378; J2405

== ENCOUNTER 2022-08-12 11:11 | Emergency (ER) | payer MEDICAID ==
[~2022-08-12] VITALS: Ht 175.3 cm; Wt 86.5 kg
[~2022-08-12 11:11] MED LIST changes: +MECL12.514 PO
[2022-08-12 11:51] LABS: Basophils # (auto) 0 10 ^3/uL (0-0.2); Basophils % (auto) 0.4 % (0.0-2.0); Eosinophils # (auto) 0.1 10 ^3/uL (0-0.8); Eosinophils % (auto) 2.3 % (0.0-7.0); Hematocrit 36.9 % (36.0-46.0); Hemoglobin 12.3 g/dL (12.2-16.2); Lymphocytes # (auto) 1.7 10 ^3/uL (0.4-5.4); Lymphocytes % (auto) 35.3 % (10.0-50.0); Mean Corpuscular Hemoglobin 28.7 pg (28.0-32.0); Mean Corpuscular Hgb Conc. 33.5 g/dL (32.0-36.0); Mean Corpuscular Volume 85.7 fL (80.0-100.0); Monocytes # (auto) 0.3 10 ^3/uL (0-1.3); Monocytes % (auto) 6.5 % (0.0-12.0); Neutrophils # (auto) 2.7 10 ^3/uL (1.6-8.6); Neutrophils % (auto) 55.5 % (37.0-80.0); Nucleated Red Blood Cells % 0.1 %; Red Cell Distribution Width 14.3 % (11.8-14.3); White Blood Cell 4.9 10^3/uL (4.4-10.8)
[2022-08-12 12:02] LABS: INR 0.97 (0.9-1.15); Magnesium 2.4 mg/dL (1.6-2.6); Partial Thromboplastin Time 25.3 sec (24.6-33.4); Potassium 3.5 mmol/L (3.5-5.1)
[2022-08-12 12:08] LABS: Albumin 3.5 g/dL (3.4-5.0); BUN/Creatinine Ratio 10.7 (10.0-20.0); Bilirubin, Total 0.3 mg/dL (0.2-1.0); Total Protein 7.7 g/dL (6.4-8.2)
[2022-08-12 14:08] VITALS: BP 118/74
== END 2022-08-12 14:14 | disposition home or self-care (01) ==
LOC: ER 11:11
DX: R00.2 Palpitations (principal); R55 Syncope and collapse; F17.210 Nicotine dependence, cigarettes, uncomplicated; J45.909 Unspecified asthma, uncomplicated; E78.5 Hyperlipidemia, unspecified; Z88.6 Allergy status to analgesic agent
CPT/HCPCS: 36415; 71045; 80053; 82962; 83735; 84484; 85025; 85610; 85730; 93005

== ENCOUNTER 2023-01-19 19:38 | Emergency (ER) | payer MEDICAID ==
[~2023-01-19 19:38] MED LIST changes: -ACYC1CAP23 PO; +ACYC200C22 PO; +AZIT-81 PO; -AZIT250T8 PO; -MECL12.514 PO; +MECL1TAB31 PO
== END 2023-01-19 20:12 | disposition left against medical advice (07) ==
LOC: ER 19:40
DX: R00.2 Palpitations (principal); R42 Dizziness and giddiness; R51.9 Headache, unspecified

== ENCOUNTER 2024-04-12 13:25 | Emergency (ER) | payer MEDICAID ==
[~2024-04-12] VITALS: Ht 175.3 cm; Wt 89.9 kg
[~2024-04-12 13:25] MED LIST changes: -AZIT-81 PO; -CEPH-37 PO; -FLUC150T38 PO; +IPR002IS HHN; +LEVO500T91 PO; +MECL12.586 PO; -MECL1TAB31 PO; -METH4PAK PO; +PRED20TA2 PO
--- NOTE | 2024-04-12 13:38 | ED.PDOC ---
SOB-HPI HPI Comments 54 y.o female with PMH of asthma and hyperlipidemia, presents to the ED for a chief complaint of chills associated with congestion, runny nose, nausea, vomiting, diarrhea that started one week ago. Patient mentions symptoms are constant with no modifying factors. Patient does have family at home experiencing the same symptoms. No chest pain, SOB, fever reported. Time Seen by MD: 13:32 Primary Care Provider: JULES Salvador notes: Nurses Notes, Medications, Allergies Information Source: Patient Mode of Arrival: Ambulatory Severity: Moderate Timing: Weeks (1) Duration: Since onset Context: At Rest History of: Asthma Modifying Factors: Nothing Associated Signs and Symptoms: Cough, Nasal Congestion If cough with SOB: Productive Past Medical History PAST MEDICAL HISTORY: Asthma, High Lipids Surgical History: Denies all surgeries EDGER TECHNICIAN History: No Pertinent EDGER TECHNICIAN History Family History Family History: Family hx of DM Social History Smoker: Cigarettes Alcohol: Denies ETOH Use Drugs: Denies Drug Use Lives In: Home Constitutional: reports: chills; denies: diaphoresis, fatigue, fever, malaise, sweats, weakness, others EENTM: reports: nose congestion; denies: blurred vision, double vision, ear bleeding, ear discharge, ear drainage, ear pain, ear ringing, eye pain, eye redness, hearing loss, mouth pain, mouth swelling, nasal discharge, nose bleeding, nose pain, photophobia, tearing, throat pain, throat swelling, voice c hanges, others Respiratory: reports: cough; denies: hemoptysis, orthopnea, SOB at rest, shortness of breath, SOB with excertion, stridor, wheezing, others Cardiovascular: denies: chest pain, dizzy spells, diaphoresis, Dyspnea on exertion, edema, irregular heart beat, left arm pain, lightheadedness, palpitations, PND, syncope, others Gastrointestinal: reports: diarrhea, nausea, vomiting; denies: abdomen distended, abdominal pain, blood streaked bowels, constipated, dysphagia, difficulty swallowing, hematemesis, melena, poor appetite, poor fluid intake, rectal bleeding, rectal pain, others Genitourinary: denies: abnormal vagina bleeding, burning, dyspareunia, dysuria, flank pain, frequency, hematuria, incontinence, pain, , vagina discharge, urgency, others Neurological: denies: dizziness, fainting, headache, left sided numbness, left sided weakness, numbness, paresthesia, pre-existing deficit, right sided numbness, right sided weakness, seizure, speech problems, tingling, tremors, weakness, others Musculoskeletal: denies: back pain, gout, joint pain, joint swelling, muscle pain, muscle stiffness, neck pain, others Integumetry: denies: bruises, change in color, change in hair/nails, dryness, laceration, lesions, lumps, rash, wounds, others Allergic/Immunocompromised: denies: Difficulty Healing, Frequent Infections, Hives, Itching, others Hematologic/Lymphatic: denies: anemia, blood clots, easy bleeding, easy bruising, swollen glands, others Endocrine: denies: excessive hunger, excessive sweating, excessive thirst, excessive urination, flushing, intolerance to cold, intolerance to heat, unexplained weight gain, unexplained weight loss, others Psychiatric: denies: anxiety, bipolar disorder, depression, hopeless, panic disorder, schizophrenia, sleepless, suicidal, others All Other Systems: Reviewed and Negative Physical Exam General Appearance: No Apparent Distress, Normal HEENT: Normal ENT Inspection, Pharynx Normal, TMs Normal Neck: Full Range of Motion, Non-Tender, Normal, Normal Inspection Respiratory: Respiratory Distress, Wheezing (right lung expiratory wheezing) Cardiovascular: No Edema, No JVD, No Murmur, Tachycardia Breast Exam: Deferred Gastrointestinal: Non Tender, No Pulsatile Mass, Normal Bowel Sounds, Soft Genitalia: Deferred Pelvic: Deferred Rectal: Deferred Extremities: No calf tenderness, Normal capillary refill, Normal inspection, Normal range of motion, Non-tender, No pedal edema Musculoskeletal : Apperance: Normal Neurologic: Alert, biomass power plant manager II-XII nml as Tested, No Motor Deficits, Normal Affect, Normal Mood, No Sensory Deficits Cerebellar Function: Normal Reflexes: Normal Skin: Dry, Normal Color, Warm Lymphatic: No Adenopathy Was a procedure done? Was a procedure done?: No Differential Dx Differential Diagnosis: Anxiety, Asthma, Bronchitis, COPD, Hyperventilation, Myocardial infarction, Panic Attack, Pneumonia, Pneumothorax, Respiratory Distress, Sinusitis, Allergic Rhinitis, Otitis Media, Peritonsillar Abscess, Peritonsillar Cellulitis, Pharyngitis, URI X-Ray, Labs, Meds, VS Vital Signs Date Time Temp Pulse Resp B/P (MAP) Pulse Ox O2 Delivery O2 Flow Rate FiO2 04/12/24 15:22 98.4 108 18 132/77 (95) 98 98.4 04/12/24 14:15 118 19 97 Room Air 04/12/24 14:15 98.7 118 19 138/82 (100) 97 98.7 04/12/24 13:39 99.9 113 19 137/94 (108) 100 Lab Test 04/12/24 14:08 04/12/24 13:54 Range/Units Influenza Type A Antigen Negative Negative Influenza Type B Antigen Negative Negative SARS-CoV-2 Antigen (Rapid) Negative NEGATIVE White Blood Count 5.8 4.4-10.8 10^3/uL Red Blood Count 4.36 4.0-5.20 10^6/uL Hemoglobin 12.6 12.2-16.2 g/dL Hematocrit 37.5 36.0-46.0 % Mean Corpuscular Volume 86.0 80.0-100.0 fL Mean Corpuscular Hemoglobin 28.8 28.0-32.0 pg Mean Corpuscular Hemoglobin Concent 33.5 32.0-36.0 g/dL Red Cell Distribution Width 14.8 H 11.8-14.3 % Platelet Count 327 140-450 10^3/uL Mean Platelet Volume 7.0 6.9-10.8 fL Neutrophils (%) (Auto) 92.2 H 37.0-80.0 % Lymphocytes (%) (Auto) 3.0 L 10.0-50.0 % Monocytes (%) (Auto) 4.1 0.0-12.0 % Eosinophils (%) (Auto) 0.5 0.0-7.0 % Basophils (%) (Auto) 0.2 0.0-2.0 % Neutrophils # (Auto) 5.4 1.6-8.6 10 ^3/uL Lymphocytes # (Auto) 0.2 L 0.4-5.4 10 ^3/uL Monocytes # (Auto) 0.2 0-1.3 10 ^3/uL Eosinophils # (Auto) 0 0-0.8 10 ^3/uL Basophils # (Auto) 0 0-0.2 10 ^3/uL Nucleated Red Blood Cells 0.0 % Sodium Level 140 136-145 mmol/L Potassium Level 3.7 3.5-5.1 mmol/L Chloride Level 105 98-107 mmol/L Carbon Dioxide Level 24 20-31 mmol/L Anion Gap 11 5-15 Blood Urea Nitrogen 10 9-23 mg/dL Creatinine 1.01 0.550-1.02 mg/dL Glomerular Filtration Rate Calc 67 >90 mL/min BUN/Creatinine Ratio 9.9 L 10.0-20.0 Serum Glucose 84 74-106 mg/dL Calcium Level 9.9 8.7-10.4 mg/dL Current Medications Medications (Trade) Dose Ordered Sig/Bo Route Start Time Stop Time Status Last Admin Sodium Chloride 1,000 ml @ 1,000 mls/hr Q1H ONCE IV 04/12/24 13:45 04/12/24 14:44 DC 04/12/24 14:20 Ondansetron HCl (Zofran Po) 4 mg ONCE ONCE PO 04/12/24 14:45 04/12/24 14:46 DC 04/12/24 14:42 Time of 1ST Reevaluation: 13:34 Reevaluation 1ST: Unchanged Time of 2ND Reevaluation: 15:29 Reevaluation 2ND: Improved Patient Education/Counseling: Diagnosis, Treatment, Prognosis Family Education/Counseling: No Family Present Additional Information External Notes: 07/06/23- SOB Ordered Test: LAB, PHA, CXR, Influenza and Covid swabs Reviewed Result: LAB including BMP and CBC Interpreted results: CXR- Agreed with radiology Discuss tx/ results: Patient and medical personnel last medical records of admission on 07/19/19, , and 08/04/23 reviewed CXR: IMPRESSION: agree with radiology: Mild bibasilar atelectasis. No focal consolidation visualized. pt has viral syndrome, without infiltrates, covid or influenza. she is feeling better and is stable for discharge Departure 1 Departure Time of Disposition: 15:31 Impression: Primary Impression: Viral syndrome Disposition: 01 HOME / SELF CARE / HOMELESS Condition: Good e-Prescriptions Ondansetron Odt 4MG Tab (ZOFRAN PO) 4 Mg Tb 4 MG PO Q4HPRN PRN for 3 Days, #15 TAB ODT TAB-DISSOLVE IN MOUTH, THEN SWALLOW Prov: SHIRIN SIMON MD 04/12/24 Discharged With: Self Critical Care Note Critical Care Time?: No Stability Stability form required: No I personally scribed for SHIRIN SIMON MD ([facility]) on 04/12/24 at 13:37. Electronically submitted by Haley Burgess ([facility]). I personally scribed for SHIRIN SIMON MD ([facility]) on 04/12/24 at 13:40. Electronically submitted by Haley Burgess ([facility]). I personally scribed for SHIRIN SIMON MD ([facility]) on 04/12/24 at 14:13. Electronically submitted by Haley Burgess ([facility]). SHIRIN SIMON MD Apr 12, 2024 13:37
--- NOTE | 2024-04-12 14:09 | DVH ---
CLINICAL INFORMATION: 54 years old, Female; cough. TECHNIQUE: Single AP portable chest radiograph was obtained. COMPARISON: XY CHEST PORTABLE on DOS: 08/04/23, XY CHEST PORTABLE on DOS: 08/12/22, CXRP on DOS: 2 FINDINGS: Lungs: Mild atelectasis in the lung bases. No focal consolidation visualized. Cardiac: Heart size is within normal limits. Pulmonary vasculature: Unremarkable. Mediastinum/roge: Unremarkable. Bones: No acute osseous abnormality identified. Other: No other significant findings. IMPRESSION: Mild bibasilar atelectasis. No focal consolidation visualized.
[2024-04-12 14:12] LABS: Basophils # (auto) 0 10 ^3/uL (0-0.2); Basophils % (auto) 0.2 % (0.0-2.0); Eosinophils # (auto) 0 10 ^3/uL (0-0.8); Eosinophils % (auto) 0.5 % (0.0-7.0); Hematocrit 37.5 % (36.0-46.0); Hemoglobin 12.6 g/dL (12.2-16.2); Lymphocytes # (auto) 0.2 10 ^3/uL (0.4-5.4); Mean Corpuscular Hemoglobin 28.8 pg (28.0-32.0); Mean Corpuscular Hgb Conc. 33.5 g/dL (32.0-36.0); Monocytes # (auto) 0.2 10 ^3/uL (0-1.3); Monocytes % (auto) 4.1 % (0.0-12.0); Neutrophils # (auto) 5.4 10 ^3/uL (1.6-8.6); Neutrophils % (auto) 92.2 % (37.0-80.0); Platelet Count (auto) 327 10^3/uL (140-450); Red Blood Cells 4.36 10^6/uL (4.0-5.20); Red Cell Distribution Width 14.8 % (11.8-14.3); White Blood Cell 5.8 10^3/uL (4.4-10.8)
[2024-04-12] MEDS: SODIUM CHLORIDE 0.9% 1,000 ML IV ONE (14:20)
[2024-04-12 14:23] LABS: Chloride 105 mmol/L (98-107); Potassium 3.7 mmol/L (3.5-5.1); Sodium 140 mmol/L (136-145)
[2024-04-12 14:24] LABS: Anion Gap 11 (5-15); Calcium 9.9 mg/dL (8.7-10.4); Carbon Dioxide 24 mmol/L (20-31)
[2024-04-12 14:29] LABS: BUN/Creatinine Ratio 9.9 (10.0-20.0); Blood Urea Nitrogen 10 mg/dL (9-23); Glucose 84 mg/dL (74-106)
[2024-04-12] MEDS: ONDANSETRON ODT 4 MG TAB PO ONE (14:42)
[2024-04-12 15:01] LABS: COVID19 ANTIGEN SOFIA FIA NEGATIVE (NEGATIVE)
[2024-04-12 15:02] LABS: Rapid Influenza A Negative (Negative); Rapid Influenza B Negative (Negative)
[2024-04-12] MEDS ORDERED: ZOFR4T PO (15:32)
[2024-04-12 17:05] VITALS: BP 138/82; PULSE 98; RESP 19; TEMP 98.7; O2SAT 97
== END 2024-04-12 17:06 | disposition home or self-care (01) ==
LOC: ER 13:25
DX: B34.9 Viral infection, unspecified (principal); E78.5 Hyperlipidemia, unspecified; F17.210 Nicotine dependence, cigarettes, uncomplicated; J45.909 Unspecified asthma, uncomplicated; Z20.822 Contact with and (suspected) exposure to COVID-19
CPT/HCPCS: 36415; 71045; 80048; 85025; 87426; 87804; 96360; 99284; J7030; Q0162

== ENCOUNTER 2024-04-13 17:04 | Inpatient (IN) | payer MEDICAID ==
[~2024-04-13] VITALS: Ht 175.3 cm; Wt 89.5 kg
[~2024-04-13 17:04] MED LIST changes: +ZOFR4T PO
[2024-04-13 17:26] VITALS: PULSE 125; RESP 29; O2SAT 95
[2024-04-13] MEDS: MAGNESIUM SULFATE 1GM/100ML 100 ML IV ONE (17:48)
[2024-04-13] MEDS: methylPREDNISolone SOD SUCC 125 MG/2 ML VL IV ONE (17:48)
[2024-04-13] MEDS: ALPRAZolam 0.25 MG TAB PO ONE ×2 (17:55→18:46)
[2024-04-13] MEDS: IPRATROPIUM BROM 0.5 MG/2.5ML INH SOL NEB ONE (17:59)
[2024-04-13] MEDS: ALBUTEROL SULF 2.5 MG/0.5ML(0.5%) NEB SOLN NEB ONE (17:59)
--- NOTE | 2024-04-13 18:06 | ED.PDOC ---
History of Present Illness HPI Comments 54F who has the same symptoms of yesterday and was diagnosed w/ viral syndrome and is currently wheezing, I Copied the chart from yesterday due from it being the same. "54 y.o female with PMH of asthma and hyperlipidemia, presents to the ED for a chief complaint of chills associated with congestion, runny nose, nausea, vomiting, diarrhea that started one week ago. Patient mentions symptoms are constant with no modifying factors. Patient does have family at home experiencing the same symptoms. No chest pain, SOB, fever reported." Chief Complaint: Shortness of Breath Time Seen by MD: 17:35 Primary Care Provider: JUANITA Salvador Notes: Nurses Notes, Medications, Allergies Allergies: Coded Allergies: NO KNOWN ALLERGIES (Unverified , 09/23/18) Home Meds Active Scripts Ondansetron Odt 4MG Tab (ZOFRAN PO) 4 Mg Tb, 4 MG PO Q4HPRN PRN for 3 Days, #15 TAB ODT TAB-DISSOLVE IN MOUTH, THEN SWALLOW Prov:HSIRIN SIMON MD 04/12/24 Levofloxacin Hemihydrate (LEVAQUIN 500 MG) 500 Mg Tab, 1 TAB PO DAILY for 5 Days, #5 TAB Prov:LEANN ELIAS GREEN END DEPARTMENT SUPERVISOR 08/07/23 Prednisone (Prednisone) 20 Mg Tab, 20 MG PO DAILY for 5 Days, #5 MG Prov:LEANN ELIAS GREEN END DEPARTMENT SUPERVISOR 08/07/23 Ipratropium [place] (Ipratropium [place]) 0.02 % Magda, 0.5 % HHN Q6HP PRN for 30 Days, #60 ML Prov:LEANN ELIAS GREEN END DEPARTMENT SUPERVISOR 08/07/23 Meclizine Hcl (Meclizine Hcl) 12.5 Mg Tab, 1 TAB PO QIDPRN, #60 TAB 3 Refills Prov:JOHANNA THOMAS MD 07/07/22 Acetaminophen (Tylenol 8 Hour Arthritis) 650 Mg Tab, 650 MG PO TID, #24 TAB Prov:PRAMOD SHEIKH 12/23/21 Cyclobenzaprine Hcl (FLEXERIL) 10 Mg Tab, 10 MG PO Q8HP PRN, #21 TAB Prov:NIESHA ORTIZ N.P. 05/01/13 Tramadol Hcl (Tramadol Hcl) 50 Mg Tab, 50 MG PO Q6HP PRN, #30 TAB Prov:BRIANNA ORTIZCALI Paul 05/01/13 Reported Medications Fluticasone Propionate (Flovent Hfa) 110 Mcg Aer, 110 MCG IN Q4HP 09/07/12 Acyclovir (Acyclovir) 200 Mg Cap, 400 MG PO BID 12/14/10 Fluocinonide (Fluocinonide) 0.05 % Cre 05/02/10 [Ventolin] No Conflict Check, TIDP 10/14/09 Information Source: Patient, [facility] Medical Record, Past Medical Record Mode of Arrival: Wheelchair Severity: Moderate Timing: Days Duration: Since onset, Days Prehospital treatment: None Past Medical History PAST MEDICAL HISTORY: Asthma, High Lipids Surgical History: Denies all surgeries HEALTH PLAN MANAGER History: No Pertinent HEALTH PLAN MANAGER History Family History Family History: Reviewed,noncontributory to illness, Unknown Social History Smoker: Cigarettes Alcohol: Denies ETOH Use Drugs: Denies Drug Use Lives In: Home Constitutional: denies: chills, diaphoresis, fatigue, fever, malaise, sweats, weakness, others EENTM: denies: blurred vision, double vision, ear bleeding, ear discharge, ear drainage, ear pain, ear ringing, eye pain, eye redness, hearing loss, mouth pain, mouth swelling, nasal discharge, nose bleeding, nose congestion, nose pain, photophobia, tearing, throat pain, throat swelling, voice changes, others Respiratory: reports: wheezing; denies: cough, hemoptysis, orthopnea, SOB at rest, shortness of breath, SOB with excertion, stridor, others Cardiovascular: denies: chest pain, dizzy spells, diaphoresis, Dyspnea on exertion, edema, irregular heart beat, left arm pain, lightheadedness, palpitations, PND, syncope, others Gastrointestinal: reports: diarrhea, nausea, vomiting; denies: abdomen distended, abdominal pain, blood streaked bowels, constipated, dysphagia, difficulty swallowing, hematemesis, melena, poor appetite, poor fluid intake, rectal bleeding, rectal pain, others Genitourinary: denies: abnormal vagina bleeding, burning, dyspareunia, dysuria, flank pain, frequency, hematuria, incontinence, pain, , vagina discharge, urgency, others Neurological: denies: dizziness, fainting, headache, left sided numbness, left sided weakness, numbness, paresthesia, pre-existing deficit, right sided numbness, right sided weakness, seizure, speech problems, tingling, tremors, weakness, others Musculoskeletal: denies: back pain, gout, joint pain, joint swelling, muscle pain, muscle stiffness, neck pain, others Integumetry: denies: bruises, change in color, change in hair/nails, dryness, laceration, lesions, lumps, rash, wounds, others Allergic/Immunocompromised: denies: Difficulty Healing, Frequent Infections, Hives, Itching, others Hematologic/Lymphatic: denies: anemia, blood clots, easy bleeding, easy bruising, swollen glands, others Endocrine: denies: excessive hunger, excessive sweating, excessive thirst, excessive urination, flushing, intolerance to cold, intolerance to heat, unexplained weight gain, unexplained weight loss, others Psychiatric: denies: anxiety, bipolar disorder, depression, hopeless, panic disorder, schizophrenia, sleepless, suicidal, others All Other Systems: Reviewed and Negative Physical Exam Exam Comments tachycardic and wheezing General Appearance: No Apparent Distress, Normal HEENT: Normal ENT Inspection, Pharynx Normal, TMs Normal Neck: Full Range of Motion, Non-Tender, Normal, Normal Inspection Respiratory: Chest Non-Tender, Lungs Clear, No Accessory Muscle Use, Wheezing Cardiovascular: No Edema, No JVD, No Murmur, No Gallop, Normal Peripheral Pulses, Tachycardia Breast Exam: Deferred Gastrointestinal: No Organomegaly, Non Tender, No Pulsatile Mass, Normal Bowel Sounds, Soft Genitalia: Deferred Pelvic: Deferred Rectal: Deferred Extremities: No calf tenderness, Normal capillary refill, Normal inspection, Normal range of motion, Non-tender, No pedal edema Musculoskeletal : Apperance: Normal Neurologic: Alert, driver education road instructor II-XII nml as Tested, No Motor Deficits, Normal Affect, Normal Mood, No Sensory Deficits Cerebellar Function: Normal Reflexes: Normal Skin: Dry, Normal Color, Warm Lymphatic: No Adenopathy Was a procedure done? Was a procedure done?: No Differential Dx Considerations may include: pneumonia, viral infection, ptx, asthma exacerbation, chf, anxiety, respiratory failure X-Ray, Labs, Meds, VS Vital Signs Date Time Temp Pulse Resp B/P (MAP) Pulse Ox O2 Delivery O2 Flow Rate FiO2 04/13/24 18:00 22 95 Room Air* 0 21 04/13/24 17:26 125 29 95 Room Air* 0 21 04/13/24 17:25 98.0 125 29 117/84 (95) 95 98.0 04/13/24 17:13 143 04/13/24 17:11 98.0 142 18 106/80 (89) 96 Lab Test 04/13/24 17:46 Range/Units White Blood Count 5.3 4.4-10.8 10^3/uL Red Blood Count 4.57 4.0-5.20 10^6/uL Hemoglobin 13.0 12.2-16.2 g/dL Hematocrit 39.2 36.0-46.0 % Mean Corpuscular Volume 85.7 80.0-100.0 fL Mean Corpuscular Hemoglobin 28.4 28.0-32.0 pg Mean Corpuscular Hemoglobin Concent 33.1 32.0-36.0 g/dL Red Cell Distribution Width 15.2 H 11.8-14.3 % Platelet Count 297 140-450 10^3/uL Mean Platelet Volume 7.0 6.9-10.8 fL Neutrophils (%) (Auto) 89.2 H 37.0-80.0 % Lymphocytes (%) (Auto) 7.4 L 10.0-50.0 % Monocytes (%) (Auto) 3.2 0.0-12.0 % Eosinophils (%) (Auto) 0.1 0.0-7.0 % Basophils (%) (Auto) 0.1 0.0-2.0 % Neutrophils # (Auto) 4.7 1.6-8.6 10 ^3/uL Lymphocytes # (Auto) 0.4 0.4-5.4 10 ^3/uL Monocytes # (Auto) 0.2 0-1.3 10 ^3/uL Eosinophils # (Auto) 0 0-0.8 10 ^3/uL Basophils # (Auto) 0 0-0.2 10 ^3/uL Nucleated Red Blood Cells 0.0 % Sodium Level 138 136-145 mmol/L Potassium Level 4.1 3.5-5.1 mmol/L Chloride Level 105 98-107 mmol/L Carbon Dioxide Level 22 20-31 mmol/L Anion Gap 11 5-15 Blood Urea Nitrogen 12 9-23 mg/dL Creatinine 1.08 H 0.550-1.02 mg/dL Glomerular Filtration Rate Calc 61 >90 mL/min BUN/Creatinine Ratio 11.1 10.0-20.0 Serum Glucose 94 74-106 mg/dL Calcium Level 9.6 8.7-10.4 mg/dL Troponin I High Sensitivity 5 </=34 ng/L Current Medications Medications (Trade) Dose Ordered Sig/Bo Route Start Time Stop Time Status Last Admin Albuterol (Ventolin Medneb) 20 mg ONCE ONCE NEB 04/13/24 17:45 04/13/24 17:46 DC 04/13/24 17:59 Ipratropium [place] (Atrovent Medneb) 0.5 mg ONCE ONCE NEB 04/13/24 17:45 04/13/24 17:46 DC 04/13/24 17:59 Methylprednisolone Sodium Succinate (Solu Medrol) 125 mg ONCE ONCE IV 04/13/24 17:45 04/13/24 17:46 DC 04/13/24 17:48 Magnesium Sulfate/ Dextrose 100 ml @ 100 mls/hr ONCE ONCE IV 04/13/24 17:45 04/13/24 18:44 DC 04/13/24 17:48 Alprazolam (Xanax Tablet) 0.25 mg ONCE ONCE PO 04/13/24 18:45 04/13/24 18:46 DC 04/13/24 18:46 Time of 1ST Reevaluation: 18:05 Reevaluation 1ST: Unchanged Time of 2ND Reevaluation: 19:58 Reevaluation 2ND: Improved Patient Education/Counseling: Diagnosis, Treatment, Prognosis Family Education/Counseling: No Family Present Additional Information - I reviewed the following notes from patient's past medical encounters:04/12/24 - The following tests were ordered, and results were reviewed by me: Labs, X- Ray, EKG, PHA - I reviewed and agreed with the following test results read by other provider: X-ray - I discussed treatments and results with medical personnel and consultants pt was seen yesterday for the same. she was negative for chf, ptx, pneumonia, covid, influenza, but today she is wheezing more. she responded to treatments. pt has severe asthma exacerbation due to a viral infection. i did not repeat the tests and cxr done yesterday Departure 1 Departure Time of Disposition: 20:01 Impression: Primary Impression: Severe asthma with acute exacerbation Qualified Codes: J45.51 - Severe persistent asthma with (acute) exacerbation Additional Impressions: Respiratory distress Tachycardia Disposition: ADMITTED INPATIENT Admit to: Tele Condition: Stable Critical Care Note Critical Care Time?: Yes (45 min-critical care time only) Critical care comment: due to the likelihood of patients condition suddenly deteriorating, the care requires my highest level of attention, readiness to intervene. my critical care include assessing and reassessing of patient's condition, response to treatments, ordering the appropriate tests, reviewing the results, ordering of treatments, discussing the care with medical personnel and consultants, and formulating a treatment plan, as well a reviewing various medical records. this include at least 50% face-face interaction, and does not include any procedures Stability Stability form required: No I personally scribed for SHIRIN SIMON MD ([email or web address]) on 04/13/24 at 18:05. Electronically submitted by Glenn Maciel ([email or web address]). SHIRIN SIMON MD Apr 13, 2024 18:05
[2024-04-13 18:08] LABS: Basophils # (auto) 0 10 ^3/uL (0-0.2); Basophils % (auto) 0.1 % (0.0-2.0); Eosinophils # (auto) 0 10 ^3/uL (0-0.8); Eosinophils % (auto) 0.1 % (0.0-7.0); Hematocrit 39.2 % (36.0-46.0); Lymphocytes # (auto) 0.4 10 ^3/uL (0.4-5.4); Lymphocytes % (auto) 7.4 % (10.0-50.0); Mean Corpuscular Hemoglobin 28.4 pg (28.0-32.0); Mean Corpuscular Hgb Conc. 33.1 g/dL (32.0-36.0); Mean Corpuscular Volume 85.7 fL (80.0-100.0); Monocytes # (auto) 0.2 10 ^3/uL (0-1.3); Monocytes % (auto) 3.2 % (0.0-12.0); Neutrophils # (auto) 4.7 10 ^3/uL (1.6-8.6); Neutrophils % (auto) 89.2 % (37.0-80.0); Platelet Count (auto) 297 10^3/uL (140-450); Red Blood Cells 4.57 10^6/uL (4.0-5.20); Red Cell Distribution Width 15.2 % (11.8-14.3); White Blood Cell 5.3 10^3/uL (4.4-10.8)
[2024-04-13 18:12] LABS: Chloride 105 mmol/L (98-107); Potassium 4.1 mmol/L (3.5-5.1)
[2024-04-13 18:13] LABS: Anion Gap 11 (5-15); Carbon Dioxide 22 mmol/L (20-31); Sodium 138 mmol/L (136-145)
[2024-04-13 18:14] LABS: Calcium 9.6 mg/dL (8.7-10.4)
[2024-04-13 18:19] LABS: BUN/Creatinine Ratio 11.1 (10.0-20.0); Blood Urea Nitrogen 12 mg/dL (9-23); Glucose 94 mg/dL (74-106)
[2024-04-13 19:45] VITALS: RESP 26
[2024-04-13] MEDS ORDERED: ONDANSETRON HCL 4 MG/2 ML VIAL IV PRN (20:45)
[2024-04-13] MEDS ORDERED: DOCUSATE SOD 100 MG CAP PO PRN (20:45)
[2024-04-13] MEDS: SODIUM CHLORIDE 0.9% 1,000 ML IV SCH (21:08)
[2024-04-13] MEDS: ACETAMINOPHEN 325 MG TAB PO PRN (21:09)
--- NOTE | 2024-04-13 22:26 | DVHHP2 ---
History of Present Illness Reason for Visit: Severe asthma with acute exacerbation History of Present Illness The patient is a 54-year-old female with past medical history of asthma and hyperlipidemia who presented to [facility] ED for evaluation of asthma exacerbation. Patient was seen yesterday here and was diagnosed with viral syndrome and is currently wheezing, shortness of breaths at rest, shortness of breaths on exertion, feeling chills, congestion, runny nose, nausea, vomiting, diarrhea, getting worse that prompted this visit. Patient was seen and evaluated in the ED, laboratory data shows WBC 5.3, platelets 297, sodium 138, potassium 4.1, BUN 12, creatinine 1.08, glucose 94, troponin 5, blood pressure 118/83, heart rate 143 trending down to 100, temperature 98.0 F, O2 saturation 95% on oxygen. Patient was started on IV Solu-Medrol, given breathing treatment, please see medication orders section in the computer. On my assessment, patient denied chest pain, no headache, no dizziness, no diaphoresis, currently on oxygen, no diarrhea, no nausea, no vomiting, no fever, no chills. Patient was admitted for further evaluation and medical management. Past Medical History Asthma, High Lipids Past Surgical History Denies all surgeries Family History Reviewed, noncontributory to the management of this case. Past Social History The patient lives at home, smokes cigarettes, denies alcohol or illicit drugs abuse. Review of Systems Constitutional: Yes: Chills, Weakness; No: Fever, Sweats, Malaise, Other Eyes: No: Pain, Vision change, Conjunctivae inflammation, Eyelid inflammation, Other, Redness ENT: No: Ear pain, Ear discharge, Nose pain, Nose discharge, Nose congestion, Mouth pain, Mouth swelling, Throat pain, Throat swelling, Other Respiratory: Shortness of breath, SOB with excertion, Wheezing, Other (SOB at rest); No: Cough, Dry, Hemoptysis, Pleuritic Pain, Sputum, Wheezing Cardiovascular: No: Chest Pain, Palpitations, Orthopnea, Paroxysmal Noc. Dyspnea, Edema, Lt Headedness, Other Gastrointestinal: Nausea, Vomiting, Diarrhea; No: Abdominal Pain, Constipation, Melena, Hematochezia, Other Genitourinary: No Dysuria, No Frequency, No Incontinence, No Hematuria, No Retention, No Other Musculoskeletal: No: other, neck pain, shoulder pain, arm pain, back pain, hand pain, leg pain, foot pain Skin: No: Rash, Lesions, Jaundice, Bruising, Other Neurological: No: Weakness, Numbness, Incoordination, Change in speech, Confusion, Seizures, Other Allergies: Coded Allergies: NO KNOWN ALLERGIES (Unverified , 09/23/18) Medications Current Medications Medications Dose Ordered Sig/Bo Route Start Time Stop Time Status Last Admin Dose Admin Albuterol 2.5 mg Q4HPRN PRN NEB 04/13/24 20:45 Ipratropium [place] 0.5 mg Q4HPRN PRN NEB 04/13/24 20:45 Famotidine 20 mg Q12HR IV 04/13/24 22:00 Methylprednisolone Sodium Succinate 40 mg Q8HR IV 04/13/24 22:00 Alprazolam 0.5 mg Q8HPRN PRN PO 04/13/24 20:45 Sodium Chloride 1,000 ml @ 60 mls/hr [id number] IV 04/13/24 20:45 04/13/24 21:08 60 MLS/HR Acetaminophen/ Hydrocodone Bitart 1 tab Q4HP PRN PO 04/13/24 20:45 Ondansetron HCl 4 mg Q4HP PRN IV 04/13/24 20:45 Docusate Sodium 100 mg BIDPRN PRN PO 04/13/24 20:45 Acetaminophen 650 mg Q6HP PRN PO 04/13/24 20:45 04/13/24 21:09 650 MG Exam Vital Signs Vital Signs Date Time Temp Pulse Resp B/P (MAP) Pulse Ox O2 Delivery O2 Flow Rate FiO2 04/13/24 21:09 100.0 04/13/24 18:00 22 95 Room Air* 0 21 04/13/24 17:26 125 04/13/24 17:25 117/84 (95) General Appearance: Alert, Oriented X3, Cooperative, No acute distress HEENT: Atraumatic, PERRLA, EOMI, Mucous membr. moist/pink Respiratory: Clear to auscultation, Normal air movement Cardiovascular: Regular rate, Normal S1, Normal S2, No murmurs Abdominal: Normal bowel sounds, Soft, No tenderness, No hepatospenomegaly, No masses Extremities: No clubbing, No cyanosis, No edema, Normal pulses, No tenderness/swelling Skin: No rashes, No breakdown, No significant lesion Neuro: Normal speech, Normal tone, Sensation intact, Cranial nerves 3-12 NL, Reflexes 2+, Other (Generalized weakness) Psych/Mental Status: Mental status NL, Mood NL Labs/Xrays Labs Test 04/13/24 17:46 Range/Units White Blood Count 5.3 4.4-10.8 10^3/uL Red Blood Count 4.57 4.0-5.20 10^6/uL Hemoglobin 13.0 12.2-16.2 g/dL Hematocrit 39.2 36.0-46.0 % Mean Corpuscular Volume 85.7 80.0-100.0 fL Mean Corpuscular Hemoglobin 28.4 28.0-32.0 pg Mean Corpuscular Hemoglobin Concent 33.1 32.0-36.0 g/dL Red Cell Distribution Width 15.2 H 11.8-14.3 % Platelet Count 297 140-450 10^3/uL Mean Platelet Volume 7.0 6.9-10.8 fL Neutrophils (%) (Auto) 89.2 H 37.0-80.0 % Lymphocytes (%) (Auto) 7.4 L 10.0-50.0 % Monocytes (%) (Auto) 3.2 0.0-12.0 % Eosinophils (%) (Auto) 0.1 0.0-7.0 % Basophils (%) (Auto) 0.1 0.0-2.0 % Neutrophils # (Auto) 4.7 1.6-8.6 10 ^3/uL Lymphocytes # (Auto) 0.4 0.4-5.4 10 ^3/uL Monocytes # (Auto) 0.2 0-1.3 10 ^3/uL Eosinophils # (Auto) 0 0-0.8 10 ^3/uL Basophils # (Auto) 0 0-0.2 10 ^3/uL Nucleated Red Blood Cells 0.0 % Sodium Level 138 136-145 mmol/L Potassium Level 4.1 3.5-5.1 mmol/L Chloride Level 105 98-107 mmol/L Carbon Dioxide Level 22 20-31 mmol/L Anion Gap 11 5-15 Blood Urea Nitrogen 12 9-23 mg/dL Creatinine 1.08 H 0.550-1.02 mg/dL Glomerular Filtration Rate Calc 61 >90 mL/min BUN/Creatinine Ratio 11.1 10.0-20.0 Serum Glucose 94 74-106 mg/dL Calcium Level 9.6 8.7-10.4 mg/dL Troponin I High Sensitivity 5 </=34 ng/L PATIENT: GERSON WAKEFIELD OACCT: [id number] UNIT: [id number] : 1970 LOC: ER ROOM / BED: / AGE / SEX: 54 / F ADM STATUS: REG ER SERVICE 1334 ORDERING PHYSICIAN: SHIRIN SIMON MD PROCEDURE(s): CXRP - CHEST PORTABLE REASON: cough ORDER NUMBER(s): [id number], ACCESSION NUMBER(s): [id number] CLINICAL INFORMATION: 54 years old, Female; cough. TECHNIQUE: Single AP portable chest radiograph was obtained. COMPARISON: XY CHEST PORTABLE on DOS: 08/04/23, XY CHEST PORTABLE on DOS: 08/12/22, CXRP on DOS: 04/14/22 FINDINGS: Lungs: Mild atelectasis in the lung bases. No focal consolidation visualized. Cardiac: Heart size is within normal limits. Pulmonary vasculature: Unremarkable. Mediastinum/roge: Unremarkable. Bones: No acute osseous abnormality identified. Other: No other significant findings. IMPRESSION: Mild bibasilar atelectasis. No focal consolidation visualized. Assessment/Plan Assessment/Plan Severe asthma with acute exacerbation Tachycardia Respiratory distress Severe persistent asthma with (acute) exacerbation Plan 1. Admit to telemetry unit 2. Breathing treatment 3. Pain control management 4. Management of fluids and electrolytes 5. Consultation for pulmonology 6. Diagnostic tests chest x-ray 7. DVT prophylaxis-on SCDs 8. Repeat labs CBC, CMP in a.m. 9. Continue with current medical management 10. Treatment plan discussed with patient and RN. Patient verbalized understanding. Plan discussed with: Patient, Other (RN) My Orders Orders - ELSIE STYLES DNP Procedure Category Date Status Time Albuterol Medneb PHA 04/13/24 In Process (Ventolin Medneb) 20:45 Ipratropium Medneb PHA 04/13/24 In Process (Atrovent Medneb) 20:45 Famotidine Injection PHA 04/13/24 In Process (Pepcid Injection) 22:00 Methylprednisolone PHA 04/13/24 In Process Sod Succ (Solu Medrol 22:00 *Consult CONS 04/13/24 Transmitted / 20:36 Alprazolam Tablet PHA 04/13/24 In Process (Xanax Tablet) 20:45 Allergies JIMENEZ 04/13/24 In Process 20:36 Code Status CODE 04/13/24 Transmitted 20:36 Sodium Chloride 0.9% PHA 04/13/24 In Process 20:45 Oxygen Per Hour RT 04/13/24 Transmitted 20:36 Hydrocodone-Acet PHA 04/13/24 In Process 5/325mg Tab ([place] 20:45 Ondansetron Hcl PHA 04/13/24 In Process (Zofran) 20:45 Docusate Sodium PHA 04/13/24 In Process Capsule ([place]ace 20:45 Complete Blood Count LAB 04/14/24 Verified 04:00 Comprehensive LAB 04/14/24 Verified Metabolic Panel 04:00 Cardiac DIET 04/14/24 Transmitted Diet-2gna,Lofat,Lochol Breakfast Condition: Serious JIMENEZ 04/13/24 In Process 20:36 Acetaminophen Tablet PHA 04/13/24 In Process (Tylenol Tablet) 20:45 Bedrest With Bathroom JIMENEZ 04/13/24 In Process Privileg 20:36 Sequential JIMNEEZ 04/13/24 In Process Compression Device Problem List: (1) Severe asthma with acute exacerbation (2) Tachycardia (3) Respiratory distress (4) Severe persistent asthma with (acute) exacerbation Date of Service: Apr 13, 2024 Billing Provider: ELSIE STYLES DNP Common Visit Codes: [id number] INP/OBS CARE (HIGH) ELSIE STYLES DNP Apr 13, 2024 22:26
[2024-04-13] MEDS ORDERED: NITROGLYCERIN 0.4 MG SL TAB SL PRN (22:30)
[2024-04-13] MEDS ORDERED: MORPHINE SULFATE INJ 2 MG/ml SYRG IV PRN (22:30)
[2024-04-13 22:31] VITALS: BP 117/84; PULSE 125; RESP 22; TEMP 100; O2SAT 95
[2024-04-13] MEDS: FAMOTIDINE (10MG/ML) 2ML VL IV SCH (22:41)
[2024-04-13] MEDS: methylPREDNISolone SOD SUCC 40 MG/ML VL IV SCH (22:41)
[2024-04-14 05:16] LABS: Basophils # (auto) 0 10 ^3/uL (0-0.2); Basophils % (auto) 0.1 % (0.0-2.0); Eosinophils # (auto) 0 10 ^3/uL (0-0.8); Hematocrit 37.6 % (36.0-46.0); Hemoglobin 12.7 g/dL (12.2-16.2); Lymphocytes # (auto) 0.4 10 ^3/uL (0.4-5.4); Lymphocytes % (auto) 7.2 % (10.0-50.0); Mean Corpuscular Hemoglobin 29.1 pg (28.0-32.0); Mean Corpuscular Hgb Conc. 33.8 g/dL (32.0-36.0); Mean Corpuscular Volume 86.1 fL (80.0-100.0); Monocytes # (auto) 0.1 10 ^3/uL (0-1.3); Monocytes % (auto) 1.1 % (0.0-12.0); Neutrophils # (auto) 4.6 10 ^3/uL (1.6-8.6); Neutrophils % (auto) 91.6 % (37.0-80.0); Platelet Count (auto) 312 10^3/uL (140-450); Red Blood Cells 4.37 10^6/uL (4.0-5.20)
[2024-04-14 05:28] LABS: Alanine Aminotransferase 22 U/L (7-40); Albumin 4.4 g/dL (3.2-4.8); Alkaline Phosphatase 94 U/L (46-116); Anion Gap 11 (5-15); BUN/Creatinine Ratio 12.6 (10.0-20.0); Bilirubin, Total 0.3 mg/dL (0.2-1.0); Blood Urea Nitrogen 11 mg/dL (9-23); Calcium 9.4 mg/dL (8.7-10.4); Carbon Dioxide 22 mmol/L (20-31); Chloride 104 mmol/L (98-107); Potassium 4.4 mmol/L (3.5-5.1); Sodium 137 mmol/L (136-145); Total Protein 7.2 g/dL (5.7-8.2)
[2024-04-14 05:32] LABS: Aspartate Aminotransferase 13 U/L (13-40); Glucose 161 mg/dL (74-106)
[2024-04-14 07:30] VITALS: PULSE 97; RESP 22; O2SAT 95
[2024-04-14] MEDS: IPRATROPIUM BROM 0.5 MG/2.5ML INH SOL NEB PRN (08:09)
[2024-04-14 08:10] VITALS: PULSE 89; RESP 20; O2SAT 92
[2024-04-14] MEDS: ALBUTEROL SULF 2.5 MG/0.5ML(0.5%) NEB SOLN NEB PRN (08:10)
[2024-04-14 08:16] VITALS: PULSE 92; RESP 20; O2SAT 98
--- NOTE | 2024-04-14 11:20 | DVHPN2 ---
Eyes: No Pain, No Vision change, No Conjunctivae inflammation, No Eyelid inflammation, No Other, No Redness ENT: No Ear pain, No Ear discharge, No Nose pain, No Nose discharge, No Nose congestion, No Mouth pain, No Mouth swelling, No Throat pain, No Throat swelling, No Other Cardiovascular: No Chest Pain, No Palpitations, No Orthopnea, No Paroxysmal Noc. Dyspnea, No Edema, No Lt Headedness, No Other Respiratory: No Cough, No Dry; Shortness of breath, SOB with excertion, W heezing; No Hemoptysis, No Pleuritic Pain, No Sputum; Other (SOB at rest) Gastrointestinal: Nausea, Vomiting; No Abdominal Pain; Diarrhea; No Constipation, No Melena, No Hematochezia, No Other Genitourinary: No Dysuria, No Frequency, No Incontinence, No Hematuria, No Retention, No Other Musculoskeletal: No other, No neck pain, No shoulder pain, No arm pain, No back pain, No hand pain, No leg pain, No foot pain Skin: No Rash, No Lesions, No Jaundice, No Bruising, No Other Objective Vitals Vital Signs Date Time Temp Pulse Resp B/P (MAP) Pulse Ox O2 Delivery O2 Flow Rate FiO2 04/14/24 10:00 100 18 131/86 (101) 93 04/14/24 08:10 Nasal Cannula* 3 32 04/14/24 07:30 98.2 98.2 Intake/Output Intake and Output 04/14/24 07:00 Intake Total 640 ml Balance 640 ml Intake IV Total 640 ml Medications Current Medications Medications Dose Ordered Sig/Bo Route Start Time Stop Time Status Last Admin Dose Admin Albuterol 2.5 mg Q4HPRN PRN NEB 04/13/24 20:45 04/14/24 08:10 2.5 MG Ipratropium [place] 0.5 mg Q4HPRN PRN NEB 04/13/24 20:45 04/14/24 08:09 0.5 MG Famotidine 20 mg Q12HR IV 04/13/24 22:00 04/14/24 10:19 20 MG Methylprednisolone Sodium Succinate 40 mg Q8HR IV 04/13/24 22:00 04/14/24 06:01 40 MG Alprazolam 0.5 mg Q8HPRN PRN PO 04/13/24 20:45 Sodium Chloride 1,000 ml @ 60 mls/hr [id number] IV 04/13/24 20:45 04/13/24 21:08 60 MLS/HR Acetaminophen/ Hydrocodone Bitart 1 tab Q4HP PRN PO 04/13/24 20:45 Ondansetron HCl 4 mg Q4HP PRN IV 04/13/24 20:45 Docusate Sodium 100 mg BIDPRN PRN PO 04/13/24 20:45 Acetaminophen 650 mg Q6HP PRN PO 04/13/24 20:45 04/13/24 21:09 650 MG Nitroglycerin 0.4 mg Q5MINP PRN SL 04/13/24 22:30 Morphine Sulfate 2 mg Q30M PRN IV 04/13/24 22:30 Laboratory Results Laboratory Tests 04/14/24 04:49 Chemistry Test 04/13/24 17:46 04/14/24 04:49 Calcium Level 9.6 mg/dL (8.7-10.4) 9.4 mg/dL (8.7-10.4) Albumin 4.4 g/dL (3.2-4.8) Total Protein 7.2 g/dL (5.7-8.2) LFT Test 04/14/24 04:49 Alanine Aminotransferase (ALT) 22 U/L (7-40) Alkaline Phosphatase 94 U/L (46-116) Aspartate Amino Transferase (AST) 13 U/L (13-40) Total Bilirubin 0.3 mg/dL (0.2-1.0) JOHANNA THOMAS MD Apr 14, 2024 11:20
[2024-04-14] MEDS: HYDROcodone-ACET 5/325MG TAB PO PRN (12:41)
[2024-04-14] MEDS: ALPRAZolam 0.5 MG TAB PO PRN (17:22)
[2024-04-14 18:40] VITALS: O2SAT 91
[2024-04-14 19:28] VITALS: PULSE 94; RESP 18; TEMP 97.8; O2SAT 94
--- NOTE | 2024-04-14 20:59 | DVHINCON2 ---
Date of service: Apr 14, 2024 Referring Physician Gaurav Layne DNP Reason for Consultation Acute hypoxic respiratory failure, asthma exacerbation History of Present Illness A 54-year-old woman with past medical history of asthma and hyperlipidemia who presented to the ED on 04/13/24 for evaluation of asthma exacerbation. Patient was seen here on the day prior to presentation and diagnosed with viral syndrome. Reported wheezing, shortness of breath at rest and exertion, chills, congestion, runny nose, nausea, vomiting, diarrhea getting worse that prompted this visit. ED workup showed WBC 5.3, platelets 297, sodium 138, potassium 4.1, BUN 12, creatinine 1.08, glucose 94, troponin 5; blood pressure 118/83, heart rate 143 trending down to 100, temperature 98.0 F, O2 saturation 95% on oxygen. Patient was started on IV Solu-Medrol, given breathing treatment. Patient was admitted for further care and pulmonary consultation is requested for evaluation and management due to these findings. Review of Systems: 14-point review of systems negative unless otherwise noted above. Past Medical History: Asthma and hyperlipidemia Past Surgical History: None. Medications: Reviewed. Allergies: No known drug allergies. Family History: Heart disease and colon cancer. Social History: Nonsmoker. No alcohol or illicit drug use. Family History: Cardiovascular disease G8 MOTHER G8 FATHER Colon cancer G8 MOTHER Allergies: Coded Allergies: NO KNOWN ALLERGIES (Unverified , 09/23/18) Home Meds Active Scripts Ondansetron Odt 4MG Tab (ZOFRAN PO) 4 Mg Tb, 4 MG PO Q4HPRN PRN for 3 Days, #15 TAB ODT TAB-DISSOLVE IN MOUTH, THEN SWALLOW Prov:SHIRIN SIMON MD 04/12/24 Levofloxacin Hemihydrate (LEVAQUIN 500 MG) 500 Mg Tab, 1 TAB PO DAILY for 5 Days, #5 TAB Prov:LEANN ELIAS MEDICATION CARE MANAGER 08/07/23 Prednisone (Prednisone) 20 Mg Tab, 20 MG PO DAILY for 5 Days, #5 MG Prov:LEANN ELIAS MEDICATION CARE MANAGER 08/07/23 Ipratropium [place] (Ipratropium [place]) 0.02 % Magda, 0.5 % HHN Q6HP PRN for 30 Days, #60 ML Prov:LEANN ELIAS MEDICATION CARE MANAGER 08/07/23 Meclizine Hcl (Meclizine Hcl) 12.5 Mg Tab, 1 TAB PO QIDPRN, #60 TAB 3 Refills Prov:JOHANNA THOMAS MD 07/07/22 Acetaminophen (Tylenol 8 Hour Arthritis) 650 Mg Tab, 650 MG PO TID, #24 TAB Prov:PRAMOD SHEIKH 12/23/21 Cyclobenzaprine Hcl (FLEXERIL) 10 Mg Tab, 10 MG PO Q8HP PRN, #21 TAB Prov:INESHA ORTIZ N.P. 05/01/13 Tramadol Hcl (Tramadol Hcl) 50 Mg Tab, 50 MG PO Q6HP PRN, #30 TAB Prov:NIESHA ORTIZ N.P. 05/01/13 Reported Medications Fluticasone Propionate (Flovent Hfa) 110 Mcg Aer, 110 MCG IN Q4HP 09/07/12 Acyclovir (Acyclovir) 200 Mg Cap, 400 MG PO BID 12/14/10 Fluocinonide (Fluocinonide) 0.05 % Cre 05/02/10 [Ventolin] No Conflict Check, TIDP 10/14/09 Current Medications Current Medications Medications (Trade) Dose Ordered Sig/Bo Route PRN Reason Start Time Stop Time Status Last Admin Famotidine (Pepcid Injection) 20 mg Q12HR IV 04/13/24 22:00 04/14/24 10:19 Methylprednisolone Sodium Succinate (Solu Medrol) 40 mg Q8HR IV 04/13/24 22:00 04/14/24 14:14 Nitroglycerin (Ntrostat Sublingual) 0.4 mg Q5MINP PRN SL FOR CHEST PAIN 04/13/24 22:30 Morphine Sulfate 2 mg Q30M PRN IV FOR CHEST PAIN 04/13/24 22:30 Vital Signs Vital Signs Date Time Temp Pulse Resp B/P (MAP) Pulse Ox O2 Delivery O2 Flow Rate FiO2 04/14/24 20:16 20 96 Nasal Cannula* 2 28 04/14/24 19:28 94 04/14/24 19:28 97.8 121/71 (88) 97.8 Physical Exam Gen.: Patient lying in bed in no apparent distress. On supplemental oxygen. Head: Normocephalic, atraumatic. Eyes: EOMI/PERRLA. Ears: Normal hearing. Normal anatomy. Neck/trachea: Trachea midline, supple. Nose: Normal external anatomy. Mouth: Moist mucous membranes. Chest: Decreased air entry bilaterally. No wheezing or rhonchi. Cardiovascular: Positive S1, positive S2. Regular rate and rhythm. Abdomen: Positive bowel sounds in all 4 quadrants. Soft, non-tender, non- distended. : Deferred. Rectal: Deferred. Skin: Warm, dry. Intact. Extremities: 2+ radial pulses bilaterally. No lower extremity edema. Neuro: Awake, alert, oriented x3. No gross motor or sensory deficits. Cranial nerves II through XII intact. Gait not assessed. Labs/Diagnostic Data Labs Test 04/14/24 04:49 04/13/24 17:46 Range/Units White Blood Count 5.0 4.4-10.8 10^3/uL Red Blood Count 4.37 4.0-5.20 10^6/uL Hemoglobin 12.7 12.2-16.2 g/dL Hematocrit 37.6 36.0-46.0 % Mean Corpuscular Volume 86.1 80.0-100.0 fL Mean Corpuscular Hemoglobin 29.1 28.0-32.0 pg Mean Corpuscular Hemoglobin Concent 33.8 32.0-36.0 g/dL Red Cell Distribution Width 15.0 H 11.8-14.3 % Platelet Count 312 140-450 10^3/uL Mean Platelet Volume 7.1 6.9-10.8 fL Neutrophils (%) (Auto) 91.6 H 37.0-80.0 % Lymphocytes (%) (Auto) 7.2 L 10.0-50.0 % Monocytes (%) (Auto) 1.1 0.0-12.0 % Eosinophils (%) (Auto) 0.0 0.0-7.0 % Basophils (%) (Auto) 0.1 0.0-2.0 % Neutrophils # (Auto) 4.6 1.6-8.6 10 ^3/uL Lymphocytes # (Auto) 0.4 0.4-5.4 10 ^3/uL Monocytes # (Auto) 0.1 0-1.3 10 ^3/uL Eosinophils # (Auto) 0 0-0.8 10 ^3/uL Basophils # (Auto) 0 0-0.2 10 ^3/uL Nucleated Red Blood Cells 0.0 % Sodium Level 137 136-145 mmol/L Potassium Level 4.4 3.5-5.1 mmol/L Chloride Level 104 98-107 mmol/L Carbon Dioxide Level 22 20-31 mmol/L Anion Gap 11 5-15 Blood Urea Nitrogen 11 9-23 mg/dL Creatinine 0.87 0.550-1.02 mg/dL Glomerular Filtration Rate Calc 80 >90 mL/min BUN/Creatinine Ratio 12.6 10.0-20.0 Serum Glucose 161 H 74-106 mg/dL Calcium Level 9.4 8.7-10.4 mg/dL Total Bilirubin 0.3 0.2-1.0 mg/dL Aspartate Amino Transferase (AST) 13 13-40 U/L Alanine Aminotransferase (ALT) 22 7-40 U/L Alkaline Phosphatase 94 46-116 U/L Total Protein 7.2 5.7-8.2 g/dL Albumin 4.4 3.2-4.8 g/dL Troponin I High Sensitivity 5 </=34 ng/L Assessment Impression: Acute asthma exacerbation Acute hypoxic respiratory failure 2/2 acute asthma exacerbation Atelectasis Hyperglycemia 2/2 steroids. Dyspnea on exertion Plan: Supplemental oxygen 2 LPM NC Titrate to keep O2 sats above 92%. Taper down as tolerated Continue bronchodilators. IV steroids Incentive spirometry Monitor renal function. Monitor electrolytes. Supplement as necessary. Monitor ins and outs. GI prophylaxis - Pepcid. DVT prophylaxis. Prognosis: Poor given patient's multiple co-morbidities. Rest of plan per hospitalist and other consultants. Thank you Gaurav Layne DNP, for allowing me to participate in this patient's care. Further recommendations will depend on the patient's clinical course. Please do not hesitate to contact me if you have any questions or concerns. This medical document was created using an electronic medical record system with [employer] dictation system. Although these documentations are being carefully reviewed, there may still be some phonetic and typographical changes. The errors are purely typographical, due to imperfection on the software program, and do not reflect any compromise in the patient's medical care. Plan discussed with: Patient, Other (RN, MEDICATION CARE MANAGER MD Xi) JUNIOR REDMAN MD Apr 14, 2024 20:59
[2024-04-15 06:20] VITALS: PULSE 90; RESP 22; O2SAT 93
[2024-04-15 06:22] VITALS: O2SAT 93
[2024-04-15 06:28] VITALS: PULSE 108; RESP 22; O2SAT 98
[2024-04-15 08:58] VITALS: PULSE 87; RESP 20; O2SAT 94
[2024-04-15 10:00] VITALS: BP 111/65; PULSE 91; RESP 16; O2SAT 95
[2024-04-15] MEDS ORDERED: ALBU108A5 IN (11:20)
[2024-04-15] MEDS ORDERED: PRED20TA2 PO (11:20)
[2024-04-15] MEDS ORDERED: BUDE1AER4 IN (11:20)
[2024-04-15] MEDS ORDERED: FLUT1SPR5 (11:20)
[2024-04-15] MEDS ORDERED: FAMO20TA10 PO (11:20)
[2024-04-15] MEDS ORDERED: CETI10CA PO (11:20)
[2024-04-15] MEDS ORDERED: MONT-8 PO (11:20)
--- NOTE | 2024-04-15 11:24 | DVHDS2 ---
Discharge Summary Date of Admission Apr 13, 2024 at 22:25 Date of Discharge: Apr 15, 2024 Labs/Diagnostic Data: Laboratory Results Test 04/14/24 04:49 04/13/24 17:46 White Blood Count 5.0 10^3/uL (4.4-10.8) Red Blood Count 4.37 10^6/uL (4.0-5.20) Hemoglobin 12.7 g/dL (12.2-16.2) Hematocrit 37.6 % (36.0-46.0) Mean Corpuscular Volume 86.1 fL (80.0-100.0) Mean Corpuscular Hemoglobin 29.1 pg (28.0-32.0) Mean Corpuscular Hemoglobin Concent 33.8 g/dL (32.0-36.0) Red Cell Distribution Width 15.0 % (11.8-14.3) Platelet Count 312 10^3/uL (140-450) Mean Platelet Volume 7.1 fL (6.9-10.8) Neutrophils (%) (Auto) 91.6 % (37.0-80.0) Lymphocytes (%) (Auto) 7.2 % (10.0-50.0) Monocytes (%) (Auto) 1.1 % (0.0-12.0) Eosinophils (%) (Auto) 0.0 % (0.0-7.0) Basophils (%) (Auto) 0.1 % (0.0-2.0) Neutrophils # (Auto) 4.6 10 ^3/uL (1.6-8.6) Lymphocytes # (Auto) 0.4 10 ^3/uL (0.4-5.4) Monocytes # (Auto) 0.1 10 ^3/uL (0-1.3) Eosinophils # (Auto) 0 10 ^3/uL (0-0.8) Basophils # (Auto) 0 10 ^3/uL (0-0.2) Nucleated Red Blood Cells 0.0 % Sodium Level 137 mmol/L (136-145) Potassium Level 4.4 mmol/L (3.5-5.1) Chloride Level 104 mmol/L (98-107) Carbon Dioxide Level 22 mmol/L (20-31) Anion Gap 11 (5-15) Blood Urea Nitrogen 11 mg/dL (9-23) Creatinine 0.87 mg/dL (0.550-1.02) Glomerular Filtration Rate Calc 80 mL/min (>90) BUN/Creatinine Ratio 12.6 (10.0-20.0) Serum Glucose 161 mg/dL (74-106) Calcium Level 9.4 mg/dL (8.7-10.4) Total Bilirubin 0.3 mg/dL (0.2-1.0) Aspartate Amino Transferase (AST) 13 U/L (13-40) Alanine Aminotransferase (ALT) 22 U/L (7-40) Alkaline Phosphatase 94 U/L (46-116) Total Protein 7.2 g/dL (5.7-8.2) Albumin 4.4 g/dL (3.2-4.8) Troponin I High Sensitivity 5 ng/L (</=34) Other Laboratory Tests 04/14/24 04:49 Brief Hx & Hospital Course: 54-year-old female with history of childhood asthma admitted for asthma exacerbation. Patient usually had exacerbation triggered by weather changes, using albuterol and Flovent as needed, more than twice a day for the past 2 weeks, reported are very round her family was sick with upper respiratory infection which worsens her symptoms. Patient was started on breathing treatments and prednisone. Currently no wheezing. To be discharged with lumbar ACS controller, montelukast, Flonase, antihistamine and H2 vivienne. Patient to follow up with Pulmonary 15 minutes spent discussing regarding lifestyle, dietary and exercise changes to modify disease process and improve quality of life Condition at Discharge: Good Final Diagnosis/Problems List Acute hypoxic respiratory failure secondary to asthma exacerbation Moderate persistent asthma Rhinitis allergy GERD Upper respiratory infection, likelyviral Discharge Disposition: Home 39 Discharge Statement: "Patient was advised to return to the ER or call 911 if any headaches, dizziness, shortness of breath, chest pain, abdominal pain, bleeding, fevers, or worsening of medical condition. Patient was counseled about treatment plan, medications, possible side effects, patientverbalized understanding. All questions were answered to the best of my ability. This discharge took greater then 30 minutes in planning, reviewing documentation, counseling the patient, and discussing with other team members." ASSESSMENT ASSESSMENT Assessment Date of Service: Apr 15, 2024 Billing Provider: GILBERTO PATEL MD Common Visit Codes: 39821-RKL/OBS DISCH DAY >30min Secondary Visit Codes: [id number] COUNSELING IND GILBERTO PATEL MD Apr 15, 2024 11:24
--- NOTE | 2024-04-15 12:31 | ECG ---
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
--- NOTE | 2024-04-15 21:41 | DVHPN2 ---
Progress Note - Dictate Date Seen: Apr 15, 2024 Medical Necessity Reason Pt with a Central, PICC or Fol: No Subjective Patient seen and examined at bedside. Breathing comfortably on room air. Overnight events reviewed. vital signs Vital Sign Date Time Temp Pulse Resp B/P (MAP) Pulse Ox O2 Delivery O2 Flow Rate FiO2 04/15/24 10:00 91 16 111/65 (80) 95 04/15/24 08:58 Nasal Cannula* 2 28 04/14/24 19:28 97.8 97.8 Total Intake and Output 04/14/24 04/14/24 04/15/24 15:00 23:00 07:00 Intake Total 240 ml 420 ml 420 ml Balance 240 ml 420 ml 420 ml medications Current Medications Medications Dose Ordered Sig/Bo Route Start Time Stop Time Status Last Admin Dose Admin Albuterol 2.5 mg Q4HPRN PRN NEB 04/13/24 20:45 04/15/24 06:19 2.5 MG Ipratropium [place] 0.5 mg Q4HPRN PRN NEB 04/13/24 20:45 04/15/24 06:19 0.5 MG Famotidine 20 mg Q12HR IV 04/13/24 22:00 04/14/24 21:52 20 MG Methylprednisolone Sodium Succinate 40 mg Q8HR IV 04/13/24 22:00 04/15/24 05:41 40 MG Alprazolam 0.5 mg Q8HPRN PRN PO 04/13/24 20:45 04/14/24 17:22 0.5 MG Sodium Chloride 1,000 ml @ 60 mls/hr [id number] IV 04/13/24 20:45 04/15/24 06:06 60 MLS/HR Acetaminophen/ Hydrocodone Bitart 1 tab Q4HP PRN PO 04/13/24 20:45 04/15/24 08:55 1 TAB Ondansetron HCl 4 mg Q4HP PRN IV 04/13/24 20:45 Docusate Sodium 100 mg BIDPRN PRN PO 04/13/24 20:45 Acetaminophen 650 mg Q6HP PRN PO 04/13/24 20:45 04/13/24 21:09 650 MG Nitroglycerin 0.4 mg Q5MINP PRN SL 04/13/24 22:30 Morphine Sulfate 2 mg Q30M PRN IV 04/13/24 22:30 objective Gen.: Patient lying in bed in no apparent distress. Breathing on room air. Head: Normocephalic, atraumatic. Eyes: EOMI/PERRLA. Ears: Normal hearing. Normal anatomy. Neck/trachea: Trachea midline, supple. Nose: Normal external anatomy. Mouth: Moist mucous membranes. Chest: Decreased air entry bilaterally. No wheezing or rhonchi. Cardiovascular: Positive S1, positive S2. Regular rate and rhythm. Abdomen: Positive bowel sounds in all 4 quadrants. Soft, non-tender, non- distended. : Deferred. Rectal: Deferred. Skin: Warm, dry. Intact. Extremities: 2+ radial pulses bilaterally. No lower extremity edema. Neuro: Awake, alert, oriented x3. No gross motor or sensory deficits. Cranial nerves II through XII intact. Gait not assessed. laboratory and microbiology Laboratory Tests 04/14/24 04:49 Test 04/14/24 04:49 Range/Units Serum Glucose 161 H 74-106 mg/dL Assessment/Plan Impression: Acute asthma exacerbation Acute hypoxic respiratory failure 2/2 acute asthma exacerbation Atelectasis Hyperglycemia 2/2 steroids. Dyspnea on exertion Events: Breathing on room air No respiratory distress. Wheezing resolved. Assess for home O2 requirements. Assess for exertional hypoxia. Continue bronchodilators Continue IV steroids Incentive spirometry Labs and imaging reviewed. Rest of plan as noted below. Plan: Supplemental oxygen PRN Titrate to keep O2 sats above 92%. Continue bronchodilators. IV steroids Incentive spirometry Monitor renal function. Monitor electrolytes. Supplement as necessary. Monitor ins and outs. GI prophylaxis - Pepcid. DVT prophylaxis. Prognosis: Poor given patient's multiple co-morbidities. Rest of plan per hospitalist and other consultants. Thank you Gaurav Layne DNP, for allowing me to participate in this patient's care. Further recommendations will depend on the patient's clinical course. Please do not hesitate to contact me if you have any questions or concerns. This medical document was created using an electronic medical record system with [employer] system. Although these documentations are being carefully reviewed, there may still be some phonetic and typographical changes. The errors are purely typographical, due to imperfection on the software program, and do not reflect any compromise in the patient's medical care. Plan discussed with: Patient, Other (RN) JUNIOR REDMAN MD Apr 15, 2024 21:41
== END 2024-04-15 13:58 | disposition home or self-care (01) | DRG 113 ==
LOC: ER 17:04 → TELE 22:25
PROVIDERS: ADMIT Nurse Practitioner Family; ATTEND Student in an Organized Health Care Education/Training Program
DX: J06.9 Acute upper respiratory infection, unspecified (principal); J96.01 Acute respiratory failure with hypoxia; J45.41 Moderate persistent asthma with (acute) exacerbation; K21.9 Gastro-esophageal reflux disease without esophagitis; J98.11 Atelectasis; T38.0X5A Adverse effect of glucocorticoids and synthetic analogues, initial encounter; E78.5 Hyperlipidemia, unspecified; F17.210 Nicotine dependence, cigarettes, uncomplicated; R73.9 Hyperglycemia, unspecified; J31.0 Chronic rhinitis; Z79.899 Other long term (current) drug therapy; Z82.49 Family history of ischemic heart disease and other diseases of the circulatory system; Z80.0 Family history of malignant neoplasm of digestive organs; Y92.89 Other specified places as the place of occurrence of the external cause
CPT/HCPCS: 36415; 80048; 80053; 84484; 85025; 93005; 94640; 99291; G0378; J3490

== ENCOUNTER 2024-12-28 04:58 | Emergency (ER) | payer MEDICAID ==
[~2024-12-28] VITALS: Ht 175.3 cm; Wt 90.7 kg
[~2024-12-28 04:58] MED LIST changes: +ALBU108A5 IN; +BUDE1AER4 IN; +CETI10CA PO; +FAMO20TA10 PO; -FLUT110A IN; +FLUT1SPR5; -IPR002IS HHN; -LEVO500T91 PO; +MONT-8 PO; -TRAM50TA2 PO; -VENTOLIN; -ZOFR4T PO
--- NOTE | 2024-12-28 05:16 | ECG ---
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
--- NOTE | 2024-12-28 05:23 | ED.PDOC ---
History of Present Illness HPI Comments 54-year-old female who came to ER for dizziness. Patient states she has been feeling dizzy since last night, worsens with head movements, like the room spinning, associated with right sided tinnitus. Patient also nauseated, and has been having diarrhea and she states she feels dehydrated. She denies any hea daches Chief Complaint: Dizziness Time Seen by MD: 05:22 Primary Care Provider: JUANITA Reviewed Notes: Nurses Notes Allergies: Coded Allergies: NO KNOWN ALLERGIES (Unverified , 09/23/18) Home Meds Active Scripts Ondansetron HCl (Ondansetron Hydrochloride) 8 Mg Tab, 8 MG PO Q6HP PRN, #30 TAB Prov:BOGDAN ÁLVAREZ MD 12/28/24 Meclizine HCl (Meclizine) 25 Mg Chw, 25 MG PO Q6HP PRN, #30 CHW Prov:BOGDAN ÁLVAREZ MD 12/28/24 Cetirizine Hcl (Zyrtec Allergy) 10 Mg Cap, 10 MG PO DAILY for 30 Days, #30 CAP Prov:GILBERTO PATEL MD 04/15/24 Famotidine (PEPCID TABLET) 20 Mg Tb, 1 TAB PO DAILY, #30 TAB 0 Refills Prov:GILBERTO PATEL MD 04/15/24 Fluticasone Propionate (Nasal) (Flonase Allergy Relief) 50 Mcg/Act Spr, 50 MCG NA BID for 30 Days, #2 SPRAY 2 sprays each nostrills twice daily Prov:GILBERTO PATEL MD 04/15/24 Montelukast Sodium (MONTELUKAST SODIUM) 10 Mg Tab, 1 TAB PO HS for 30 Days, #30 TAB 0 Refills Prov:GILBERTO PATEL MD 04/15/24 Budesonide-Formoterol Fumarate (Budesonide/Formoterol Fum 160-4.5 Mcg/Act) 1 Aer Aer, 1 AER IN BID for 30 Days, #2 AER 2 puffs twice daily with and without symptoms Prov:GILBERTO PATEL MD 04/15/24 Albuterol Sulfate (Albuterol Sulfate Hfa) 108 Mcg/Act Aer, 108 MCG IN PRN PRN for 30 Days, #2 AER 1 Refill Prov:GILBERTO PATEL MD 04/15/24 Prednisone (Prednisone) 20 Mg Tab, 40 MG PO DAILY for 10 Days, #20 MG Prov:GILBERTO PATEL MD 04/15/24 Meclizine Hcl (Meclizine Hcl) 12.5 Mg Tab, 1 TAB PO QIDPRN, #60 TAB 3 Refills Prov:JOHANNA THOMAS MD 07/07/22 Acetaminophen (Tylenol 8 Hour Arthritis) 650 Mg Tab, 650 MG PO TID, #24 TAB Prov:PRAMOD SHEIKH 12/23/21 Cyclobenzaprine Hcl (FLEXERIL) 10 Mg Tab, 10 MG PO Q8HP PRN, #21 TAB Prov:NIESHA ORTIZ N.P. 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 Family History Family History: Reviewed,noncontributory to illness, Unknown Social History Smoker: Cigarettes Alcohol: Denies ETOH Use Drugs: Marijuana Lives In: Home Constitutional: denies: chills, diaphoresis, fatigue, fever, malaise, sweats, weakness, others EENTM: reports: ear ringing; denies: blurred vision, double vision, ear bleeding, ear discharge, ear drainage, ear pain, eye pain, eye redness, hearing loss, mouth pain, mouth swelling, nasal discharge, nose bleeding, nose congestion, nose pain, photophobia, tearing, throat pain, throat swelling, voice changes, others Respiratory: denies: cough, hemoptysis, orthopnea, SOB at rest, shortness of breath, SOB with excertion, stridor, wheezing, others Cardiovascular: denies: chest pain, dizzy spells, diaphoresis, Dyspnea on exertion, edema, irregular heart beat, left arm pain, lightheadedness, palpitations, PND, syncope, others Gastrointestinal: reports: diarrhea, nausea; denies: abdomen distended, abdominal pain, blood streaked bowels, constipated, dysphagia, difficulty swallowing, hematemesis, melena, poor appetite, poor fluid intake, rectal bleeding, rectal pain, vomiting, others Genitourinary: denies: abnormal vagina bleeding, burning, dyspareunia, dysuria, flank pain, frequency, hematuria, incontinence, pain, , vagina discharge, urgency, others Neurological: reports: dizziness; denies: fainting, headache, left sided numbness, left sided weakness, numbness, paresthesia, pre-existing deficit, right sided numbness, right sided weakness, seizure, speech problems, tingling, tremors, weakness, others Musculoskeletal: denies: back pain, gout, joint pain, joint swelling, muscle pain, muscle stiffness, neck pain, others Integumetry: denies: bruises, change in color, change in hair/nails, dryness, laceration, lesions, lumps, rash, wounds, others Allergic/Immunocompromised: denies: Difficulty Healing, Frequent Infections, Hives, Itching, others Hematologic/Lymphatic: denies: anemia, blood clots, easy bleeding, easy bruising, swollen glands, others Endocrine: denies: excessive hunger, excessive sweating, excessive thirst, excessive urination, flushing, intolerance to cold, intolerance to heat, unexplained weight gain, unexplained weight loss, others Psychiatric: denies: anxiety, bipolar disorder, depression, hopeless, panic disorder, schizophrenia, sleepless, suicidal, others Physical Exam General Appearance: No Apparent Distress, Normal HEENT: Normal ENT Inspection, Pharynx Normal, TMs Normal Neck: Full Range of Motion, Non-Tender, Normal, Normal Inspection Respiratory: Chest Non-Tender, Lungs Clear, No Accessory Muscle Use, No Respiratory Distress, Normal Breath Sounds Cardiovascular: No Edema, No JVD, No Murmur, No Gallop, Normal Peripheral Pulses, Regular Rate/Rhythm Breast Exam: Deferred Gastrointestinal: No Organomegaly, Non Tender, No Pulsatile Mass, Normal Bowel Sounds, Soft Genitalia: Deferred Pelvic: Deferred Rectal: Deferred Extremities: No calf tenderness, Normal capillary refill, Normal inspection, Normal range of motion, Non-tender, No pedal edema Musculoskeletal : Apperance: Normal Neurologic: Alert, clinical trial associate II-XII nml as Tested, No Motor Deficits, Normal Affect, Normal Mood, No Sensory Deficits Cerebellar Function: Normal Reflexes: Normal Skin: Dry, Normal Color, Warm Lymphatic: No Adenopathy Was a procedure done? Was a procedure done?: No Differential Dx Considerations may include: Anemia, electrolyte imbalance, dehydration, vertigo X-Ray, Labs, Meds, VS Vital Signs Date Time Temp Pulse Resp B/P (MAP) Pulse Ox O2 Delivery O2 Flow Rate FiO2 12/28/24 07:00 62 13 130/82 (98) 96 12/28/24 05:25 Room Air* 0 21 12/28/24 05:25 97.5 69 20 156/95 (115) 97 97.5 12/28/24 05:11 78 12/28/24 05:00 97.7 77 18 173/93 99 97.7 Lab Test 12/28/24 05:24 12/28/24 05:11 Range/Units White Blood Count 4.7 4.4-10.8 10^3/uL Red Blood Count 4.31 4.0-5.20 10^6/uL Hemoglobin 12.2 12.2-16.2 g/dL Hematocrit 36.5 36.0-46.0 % Mean Corpuscular Volume 84.7 80.0-100.0 fL Mean Corpuscular Hemoglobin 28.3 28.0-32.0 pg Mean Corpuscular Hemoglobin Concent 33.4 32.0-36.0 g/dL Red Cell Distribution Width 14.5 H 11.8-14.3 % Platelet Count 281 140-450 10^3/uL Mean Platelet Volume 7.6 6.9-10.8 fL Neutrophils (%) (Auto) 44.2 37.0-80.0 % Lymphocytes (%) (Auto) 48.0 10.0-50.0 % Monocytes (%) (Auto) 5.8 0.0-12.0 % Eosinophils (%) (Auto) 1.6 0.0-7.0 % Basophils (%) (Auto) 0.4 0.0-2.0 % Neutrophils # (Auto) 2.1 1.6-8.6 10 ^3/uL Lymphocytes # (Auto) 2.3 0.4-5.4 10 ^3/uL Monocytes # (Auto) 0.3 0-1.3 10 ^3/uL Eosinophils # (Auto) 0.1 0-0.8 10 ^3/uL Basophils # (Auto) 0 0-0.2 10 ^3/uL Nucleated Red Blood Cells 0.1 % Sodium Level 142 136-145 mmol/L Potassium Level 3.6 3.5-5.1 mmol/L Chloride Level 107 98-107 mmol/L Carbon Dioxide Level 28 20-31 mmol/L Anion Gap 7 5-15 Blood Urea Nitrogen 12 9-23 mg/dL Creatinine 1.05 H 0.550-1.02 mg/dL Glomerular Filtration Rate Calc 64 >90 mL/min BUN/Creatinine Ratio 11.4 10.0-20.0 Serum Glucose 93 74-106 mg/dL Calcium Level 9.4 8.7-10.4 mg/dL Magnesium Level 2.0 1.6-2.6 mg/dL Total Bilirubin 0.4 0.2-1.0 mg/dL Aspartate Amino Transferase (AST) 18 13-40 U/L Alanine Aminotransferase (ALT) 20 7-40 U/L Alkaline Phosphatase 105 46-116 U/L Troponin I High Sensitivity 12 </=34 ng/L Total Protein 6.9 5.7-8.2 g/dL Albumin 4.6 3.2-4.8 g/dL POC Glucose 92 70-106 mg/dl Current Medications Medications (Trade) Dose Ordered Sig/Bo Route Start Time Stop Time Status Last Admin Ondansetron HCl (Zofran Po) 8 mg ONCE ONCE PO 12/28/24 05:15 12/28/24 05:18 DC 12/28/24 05:31 Meclizine HCl (Antivert Tablet) 25 mg ONCE ONCE PO 12/28/24 05:15 12/28/24 05:18 DC 12/28/24 05:31 X-Ray, Labs, Meds, VS Comment This 54-year-old female presents secondary to sensation of the room spinning around her. Upon reassessment at 8:00 a.m., she states her symptoms have resolved. Her workup here has been benign and now that she is asymptomatic, she will be discharged home with prescription for meclizine and Zofran. She is asked to follow up with the PCP in next one two days return to the ER for new/worrisome/worsening symptoms. She was also noted have dental caries on imaging. She has provided a copy of her imaging to follow up with her dentist. Time of 1ST Reevaluation: 05:19 Reevaluation 1ST: Unchanged Patient Education/Counseling: Diagnosis, Treatment Family Education/Counseling: No Family Present SEPSIS Sepsis Screen Date sepsis recognized/suspect: Dec 28, 2024 Time Sepsis recognized/suspect: 0500 Recent Procedure: No On Antibiotic Therapy: No Respiratory Rate >20: No Heart Rate >90: No Temp<36 C (96.8 F) or >38.3 C: No SBP <90 or MAP <65 mmHG: No New Acute Mental Status Change: No Is the patient on CPAP, BIPAP,: No Physician Orders Head Without Contrast (12/28/24 05:15) Vital Signs Date Time Temp Pulse Resp B/P (MAP) Pulse Ox O2 Delivery O2 Flow Rate FiO2 12/28/24 07:00 62 13 130/82 (98) 96 12/28/24 05:25 Room Air* 0 21 12/28/24 05:25 97.5 69 20 156/95 (115) 97 97.5 12/28/24 05:11 78 12/28/24 05:00 97.7 77 18 173/93 99 97.7 Laboratory Tests Test 12/28/24 05:24 White Blood Count 4.7 10^3/uL (4.4-10.8) Medications Medications Dose Ordered Sig/Bo Route Start Time Stop Time Status Last Admin Dose Admin Meclizine HCl 25 mg ONCE ONCE PO 12/28/24 05:15 12/28/24 05:18 DC 12/28/24 05:31 Ondansetron HCl 8 mg ONCE ONCE PO 12/28/24 05:15 12/28/24 05:18 DC 12/28/24 05:31 Departure 1 Departure Time of Disposition: 08:09 Impression: Primary Impression: Dental infection Additional Impressions: Dizziness Vertigo Disposition: 01 HOME / SELF CARE / HOMELESS Condition: Good e-Prescriptions Ondansetron HCl (Ondansetron Hydrochloride) 8 Mg Tab 8 MG PO Q6HP PRN, #30 TAB Prov: BOGDAN ÁLVAREZ MD 12/28/24 Meclizine HCl (Meclizine) 25 Mg Chw 25 MG PO Q6HP PRN, #30 CHW Prov: BOGDAN ÁLVAREZ MD 12/28/24 Critical Care Note Critical Care Time?: No Stability Stability form required: No Heart Score Heart Score: Heart Score Response (Comments) Value History N/A 0 EKG N/A 0 Age N/A 0 Risk Factors N/A 0 Troponin N/A 0 Total 0 I personally scribed for BOGDAN ÁLVAREZ MD ([email or web address]) on 12/28/24 at 05:23. Electronically submitted by Barney Montgomery ([facility]). BOGDAN ÁLVAREZ MD Dec 28, 2024 05:23 LEONIDAS DILL MD Dec 28, 2024 08:10
[2024-12-28] MEDS: ONDANSETRON ODT 4 MG TAB PO ONE (05:31)
[2024-12-28] MEDS: MECLIZINE HCL 25 MG TAB PO ONE (05:31)
[2024-12-28 05:50] LABS: Hematocrit 36.5 % (36.0-46.0); Hemoglobin 12.2 g/dL (12.2-16.2); Mean Corpuscular Hemoglobin 28.3 pg (28.0-32.0); Mean Corpuscular Volume 84.7 fL (80.0-100.0); Nucleated Red Blood Cells % 0.1 %
[2024-12-28 05:54] LABS: Alanine Aminotransferase 20 U/L (7-40); Albumin 4.6 g/dL (3.2-4.8); Alkaline Phosphatase 105 U/L (46-116); Anion Gap 7 (5-15); BUN/Creatinine Ratio 11.4 (10.0-20.0); Bilirubin, Total 0.4 mg/dL (0.2-1.0); Blood Urea Nitrogen 12 mg/dL (9-23); Calcium 9.4 mg/dL (8.7-10.4); Carbon Dioxide 28 mmol/L (20-31); Chloride 107 mmol/L (98-107); Glucose 93 mg/dL (74-106); Magnesium 2.0 mg/dL (1.6-2.6); Potassium 3.6 mmol/L (3.5-5.1); Sodium 142 mmol/L (136-145); Total Protein 6.9 g/dL (5.7-8.2)
[2024-12-28] MEDS ORDERED: MECL25CH38 PO (06:03)
[2024-12-28] MEDS ORDERED: ONDA-180 PO (06:03)
--- NOTE | 2024-12-28 06:50 | DVH ---
EXAM: CT HEAD WITHOUT CONTRAST HISTORY: vertigo COMPARISON: MRI BRAIN HEAD WO CONTRAST on DOS: 07/04/22, HEAD WITHOUT CONTRAST on DOS: 07/01/22 TECHNIQUE: Noncontrast axial CT images of the head were performed. Sagittal and coronal reformatted i mages were obtained. This CT exam was performed using 1 or more of the following dose reduction techn iques: Automated exposure control, adjustment of the mA and/or kv according to patient size, or the u se of iterative reconstruction techniques. Radiation Dose: CTDI volume is 64.01 mGy. Dose-length product is 1259.49 mGy*cm FINDINGS: No intracranial hemorrhage, mass, midline shift, hydrocephalus, or evidence of acute large vessel inf arct. The partially-visualized paranasal sinuses are clear. The bilateral mastoid air cells and middl e ear spaces are clear. No cranial fracture or scalp edema. IMPRESSION: No acute intracranial process.
[2024-12-28 07:34] VITALS: BP 143/94; PULSE 71; RESP 17; TEMP 97.8; O2SAT 95
[2024-12-28] MEDS ORDERED: MECL12.586 PO (08:12)
== END 2024-12-28 08:47 | disposition home or self-care (01) ==
LOC: ER 04:58
DX: K04.7 Periapical abscess without sinus (principal); R42 Dizziness and giddiness; F17.210 Nicotine dependence, cigarettes, uncomplicated; F12.90 Cannabis use, unspecified, uncomplicated; J45.909 Unspecified asthma, uncomplicated; E78.5 Hyperlipidemia, unspecified; Z79.624 Long term (current) use of inhibitors of nucleotide synthesis; Z79.52 Long term (current) use of systemic steroids; Z79.899 Other long term (current) drug therapy
CPT/HCPCS: 36415; 70450; 80053; 82947; 83735; 84484; 85025; 93005; 99285; J8597; Q0162; 82962